=== PATIENT | female | born 1950 | race Caucasian/White ===

== ENCOUNTER 2017-02-04 12:57 | Emergency (ER) | payer MEDICARE ==
[2017-02-04 13:02] VITALS: BMI 29.0
[2017-02-04 13:04] VITALS: O2SAT 97
[2017-02-04 14:44] VITALS: BP 154/84; PULSE 63; RESP 18; TEMP 97.9
== END 2017-02-04 15:19 | disposition home or self-care (01) ==
LOC: C.ER 12:57
DX: S92.351A Displaced fracture of fifth metatarsal bone, right foot, initial encounter for closed fracture (principal); W18.40XA Slipping, tripping and stumbling without falling, unspecified, initial encounter
CPT/HCPCS: 29515; 73630; 97116; 97161; 99285; G8978; G8979; G8980

== ENCOUNTER 2017-11-16 11:21 | Inpatient (IN) | payer MEDICARE ==
[2017-11-16 11:22] VITALS: BMI 29.0
[2017-11-16] MEDS ORDERED: Sodium Chloride 0.9% 1,000 ML IV ONE ×3 (12:24→17:22)
[2017-11-16] MEDS ORDERED: Morphine 4 MG/ML VIAL ONE ×2 (12:33→15:28)
--- NOTE | 2017-11-16 12:45 | RAD ---
PROCEDURE: CHEST RADIOGRAPH, 1 VIEW HISTORY: cp COMPARISON: 04/26/2017 FINDINGS: LUNGS: Clear. PLEURA: No pneumothorax or pleural fluid seen. CARDIOVASCULAR: Normal. OSSEOUS STRUCTURES: No significant abnormalities. VISUALIZED UPPER ABDOMEN: Normal. OTHER FINDINGS: None. IMPRESSION: No active disease.
[2017-11-16 13:11] LABS: ALB/GLOB RATIO 0.7 (1.0-2.1); ALBUMIN 3.5 g/dL (3.5-5.0); ALT/SGPT 25 U/L (9-52); AST/SGOT 24 U/L (14-36); BLOOD UREA NITROGEN 31 mg/dL (7-17); CALCIUM 9.3 mg/dl (8.6-10.4); GFR AFRICAN-AMERICAN > 60; GFR NON-AFRICAN AMERICAN 55; HDL CHOLESTEROL 22 mg/dL (30-70); LIPASE 411 U/L (23-300)
[2017-11-16 13:25] LABS: LDL CHOLESTEROL 133 mg/dL (0-129)
[2017-11-16 13:34] LABS: BASO # 0.1 K/uL (0.0-0.2); BASO % 0.6 % (0.0-2.0); EOS # 0.1 K/uL (0.0-0.7); EOS % 1.3 % (0.0-4.0); HEMOGLOBIN 11.5 g/dL (11.0-16.0); LYMPH % 24.5 % (20.0-40.0); MEAN CELL VOLUME 88.9 fL (81.0-99.0); MEAN CORPUSCULAR HGB CONC 34.9 g/dL (33.0-37.0); MEAN PLATELET VOLUME 8.1 fL (7.2-11.7); MONO # 0.3 K/uL (0.0-0.8); MONO % 3.2 % (0.0-10.0); NEUT # 5.9 K/uL (1.8-7.0); NEUT % 70.4 % (50.0-75.0); NRBC % 0.3 % (0.0-2.0); RBC 3.7 Mil/uL (3.80-5.20); RED CELL DISTRIBUTION WIDTH 15.7 % (11.5-14.5); WHITE BLOOD COUNT 8.3 K/uL (4.8-10.8)
[2017-11-16] MEDS ORDERED: Sodium Chloride 0.9% 1,000 ML ONE (15:27)
--- NOTE | 2017-11-16 15:46 | C.PDOC ---
History Of Present Illness 67-year-old female presents to the emergency department with complaints of epigastric pain that radiates to her back, associated with nausea and episodes of non-bloody/non-bilious vomiting since this morning. Patient has a past medical history of recurrent pancreatitis due to hypertriglyceridemia. Patient denies fever, chest pain, shortness of breath, dysuria/hematuria, or any other associated symptoms. Time Seen by Provider: 11/16/17 12:10 Chief Complaint (Nursing): Abdominal Pain History Per: Patient, Family (daughter at bedside) History/Exam Limitations: no limitations Onset/Duration Of Symptoms: Hrs Current Symptoms Are (Timing): Still Present Severity: Moderate Location Of Pain/Discomfort: Epigastric Past Medical History Reviewed: Historical Data, Nursing Documentation, Vital Signs Vital Signs: Last Vital Signs Temp 97.7 F 11/23/17 07:00 Pulse 67 11/23/17 07:00 Resp 20 11/23/17 07:00 BP 134/84 11/23/17 07:00 Pulse Ox 99 11/23/17 12:04 - Medical History PMH: Anxiety, Arthritis (r foot/ankle), CAD, Cardia Arrhythmia, CHF, Diabetes, Graves' Disease, HTN, Hypercholesterolemia, Hyperlipidemia, Hypothyroidism, Pancreatitis Surgical History: Appendectomy, Coronary Stent (x2) - [facility] Procedures CONTINUOUS INVASIVE MECHANICAL VENTILATION <96 CONSEC HRS (01/10/13) CORONAR ARTERIOGR-2 CATH (12/16/13) ENTERAL INFUSION OF CONCENTRATED NUT. SUBSTANCES (01/10/13) EXCISION OF STOMACH, ENDO, DIAGN (06/23/16) INJECT/INFUSE NEC (12/18/13) INSERT ENDOTRACHEAL TUBE (01/10/13) INSERTION OF INFUSION DEV INTO SUP VENA CAVA, PERC APPROACH (06/23/16) INSERTION OF ONE VASCULAR STENT (12/18/13) INSRT OF DRUG-ELUTING CORON ARTERY STENTS(S) (12/18/13) LEFT HEART CARDIAC CATH (12/16/13) LT HEART ANGIOCARDIOGRAM (12/16/13) MEASURE OF CARDIAC SAMPL & PRESSURE, L HEART, PERC APPROACH (06/23/15) PARENTERAL INFUSION OF CONCENTRATED NUT. SUBSTANCE (01/10/13) PERCUTANEOUS TRANSLUMINAL CORONARY ANGIOPLASTY [PTCA] (12/18/13) PLAIN RADIOGRAPHY OF LEFT HEART USING LOW OSMOLAR CONTRAST (06/23/15) PROCEDURE ON SINGLE VESSEL (12/18/13) Family History: States: No Known Family Hx - Social History Hx Tobacco Use: No Hx Alcohol Use: No Hx Substance Use: No - Immunization History Hx Tetanus Toxoid Vaccination: No Hx Influenza Vaccination: No Hx Pneumococcal Vaccination: No Review Of Systems Constitutional: Negative for: Fever, Chills Cardiovascular: Negative for: Chest Pain, Palpitations Respiratory: Negative for: Shortness of Breath Gastrointestinal: Positive for: Nausea, Vomiting, Abdominal Pain. Negative for : Diarrhea Genitourinary: Negative for: Dysuria, Hematuria Musculoskeletal: Positive for: Back Pain Neurological: Negative for: Weakness, Numbness, Headache, Dizziness Physical Exam - Physical Exam Appears: Well, Non-toxic, Other (in moderate pain) Skin: Normal Color, Warm, Dry, No Rash Head: Normacephalic Eye(s): bilateral: Normal Inspection Oral Mucosa: Moist Neck: Normal ROM Chest: Symmetrical Cardiovascular: Rhythm Regular Respiratory: Normal Breath Sounds, No Accessory Muscle Use, No Rales, No Rhonchi , No Wheezing Gastrointestinal/Abdominal: Bowel Sounds, Soft, Tenderness (epigastric TTP), No Guarding, No Rebound Back: No CVA Tenderness Extremity: Normal ROM, No Pedal Edema Neurological/Psych: Oriented x3 ED Course And Treatment - Laboratory Results Result Diagrams: 11/21/17 06:50 11/22/17 06:30 ECG: Interpreted By Me, Viewed By Me (sinus rhythm 98 bpm, with PVCs in bigeminy pattern, right axis, T wave inversions V5-V6, no acute ST changes) ECG Interpretation: Abnormal (bigeminy pattern unchanged from prior ekg 04/26/17 ) O2 Sat by Pulse Oximetry: 99 (RA) Pulse Ox Interpretation: Normal - CT Scan/US CT ABD/PELVIS Other Rad Studies (CT/US): Read By Radiologist, Radiology Report Reviewed CT/US Interpretation: Accession No. : [id number]. Patient Name / ID : ILDA SAMUELS / [id number]. Exam Date : 11/16/2017 17:04:50 ( Approved ). Study Comment : Sex / Age : F / 67Y. Creator : Nallely Huerta. Dictator : Floyd Cespedes MD. Tallow Maker : Cosmetician : Floyd Cespedes MD. Approver2 : Report Date : 11/16/2017 17:17:02. My Comment : . PROCEDURE: CT Abdomen and Pelvis with contrast. HISTORY: EPIGASTRIC PAIN, R/O PANCREATITIS. COMPARISON: 06/29/2016. TECHNIQUE: Contrast dose: 100 cc Omnipaque 300. Radiation dose: Total exam DLP = 731.13 mGy-cm. This CT exam was performed using one or more of the following dose reduction techniques: Automated exposure control, adjustment of the mA and/or kV according to patient size, and/or use of iterative reconstruction technique. FINDINGS: LOWER THORAX : Unremarkable. LIVER: Unremarkable. No gross lesion or ductal dilatation. GALLBLADDER AND BILE DUCTS: Unremarkable. PANCREAS: Evidence of acute pancreatitis. This is less severe compared to the prior study primarily affecting the pancreatic head and adjacent body with sparing of the distal body and tail of the pancreas. No evidence of necrotizing pancreatitis. No evidence of pseudocyst formation. Adjacent splenic vein and portal veins are patent without evidence of thrombosis. SPLEEN: Unremarkable. ADRENALS: Unremarkable. No mass. KIDNEYS AND URETERS: Unremarkable. No hydronephrosis. No solid mass. VASCULATURE: Unremarkable. No aortic aneurysm. BOWEL: Short segment of acute sigmoid diverticulitis. The descending colon and rectum are spared. No evidence of loculated air, free air or drainable collection. APPENDIX: Normal appendix. PERITONEUM: Unremarkable. No free fluid. No free air. LYMPH NODES: Unremarkable. No enlarged lymph nodes. BLADDER: Unremarkable. REPRODUCTIVE: Unremarkable. BONES: No acute fracture. OTHER FINDINGS: None. IMPRESSION: 1. Acute pancreatitis confined to the head and adjacent proximal body. No evidence of necrotizing pancreatitis. 2. Short segment (uncomplicated) acute sigmoid diverticulitis. Progress Note: Blood work, EKG, CXR, UA, and CT scan abd/pelvis ordered and reviewed. Patient given IV NS bolus, IV Zofran and IV morphine. CT scan shows acute pancreatitis as well as mild acute diverticulitis. IV Ciprofloxacin and Flagyl ordered. - Physician Consult Information Physician Contacted: Sameh S Cipriano Outcome Of Conversation: Discussed patient with PMD, he agrees with admission to his service for acute pancreatitis, mild acute diverticulitis. Disposition - Disposition Disposition: HOSPITALIZED Disposition Time: 17:15 Condition: STABLE - Clinical Impression Clinical Impression: Acute diverticulitis, Hypertriglyceridemia, Acute pancreatitis - Scribe Statement The provider has reviewed the documentation as recorded by the Scribe (Marisela Hernandez) All medical record entries made by the Scribe were at my direction and personally dictated by me. I have reviewed the chart and agree that the record accurately reflects my personal performance of the history, physical exam, medical decision making, and the department course for this patient. I have also personally directed, reviewed, and agree with the discharge instructions and disposition. Decision To Admit - Pt Status Changed To: Hospital Disposition Of: Inpatient - Admit Certification Admit to Inpatient:: After my assessment, the patient will require hospitalization for at least two midnights. This is because of the severity of symptoms shown, intensity of services needed, and/or the medical risk in this patient being treated as an outpatient. - InPatient: Physician Admission Certification:: see notes - . Bed Request Type: Regular Admitting Physician: Yue Cota Patient Diagnosis: Acute pancreatitis, Acute diverticulitis, Hypertriglyceridemia
[2017-11-16] MEDS ORDERED: Iohexol 300 100 ML IJ ONE (16:03)
[2017-11-16 17:10] LABS: SQUAMOUS EPITHIAL < 1 /hpf (0-5); URINE BACTERIA RARE (<OCC); URINE BILIRUBIN NEGATIVE (NEGATIVE); URINE CLARITY Clear (Clear); URINE COLOR Yellow (YELLOW); URINE GLUCOSE (UA) NORMAL (Normal); URINE LEUKOCYTE ESTERASE NEG Leu/uL (Negative); URINE PROTEIN 2+ mg/dL (NEGATIVE); URINE UROBILINOGEN NORMAL mg/dL (0.2-1.0)
[2017-11-16 17:12] LABS: URINE BLOOD TRACE (NEGATIVE)
--- NOTE | 2017-11-16 17:27 | CT ---
PROCEDURE: CT Abdomen and Pelvis with contrast HISTORY: EPIGASTRIC PAIN, R/O PANCREATITIS COMPARISON: 06/29/2016 TECHNIQUE: Contrast dose: 100 cc Omnipaque 300 Radiation dose: Total exam DLP = 731.13 mGy-cm. This CT exam was performed using one or more of the following dose reduction techniques: Automated exposure control, adjustment of the mA and/or kV according to patient size, and/or use of iterative reconstruction technique. FINDINGS: LOWER THORAX: Unremarkable. LIVER: Unremarkable. No gross lesion or ductal dilatation. GALLBLADDER AND BILE DUCTS: Unremarkable. PANCREAS: Evidence of acute pancreatitis. This is less severe compared to the prior study primarily affecting the pancreatic head and adjacent body with sparing of the distal body and tail of the pancreas. No evidence of necrotizing pancreatitis. No evidence of pseudocyst formation. Adjacent splenic vein and portal veins are patent without evidence of thrombosis SPLEEN: Unremarkable. ADRENALS: Unremarkable. No mass. KIDNEYS AND URETERS: Unremarkable. No hydronephrosis. No solid mass. VASCULATURE: Unremarkable. No aortic aneurysm. BOWEL: Short segment of acute sigmoid diverticulitis. The descending colon and rectum are spared. No evidence of loculated air, free air or drainable collection. APPENDIX: Normal appendix. PERITONEUM: Unremarkable. No free fluid. No free air. LYMPH NODES: Unremarkable. No enlarged lymph nodes. BLADDER: Unremarkable. REPRODUCTIVE: Unremarkable. BONES: No acute fracture. OTHER FINDINGS: None. IMPRESSION: 1. Acute pancreatitis confined to the head and adjacent proximal body. No evidence of necrotizing pancreatitis. 2. Short segment (uncomplicated) acute sigmoid diverticulitis.
[2017-11-16] MEDS ORDERED: metroNIDAZOLE IV 500 mg/100 ml 500 MG/100 ML BAG IVPB STA (18:06)
[2017-11-16] MEDS ORDERED: Ciprofloxacin 400mg/200ml D5W 400 MG/200 ML BAG IV STA (18:06)
[2017-11-16] MEDS ORDERED: metroNIDAZOLE IV 500 mg/100 ml 500 MG/100 ML BAG ONE (18:11)
[2017-11-16] MEDS: HYDROmorphone 1 mg/ml ISec IVP PRN (19:50)
[2017-11-16] MEDS: Omega-3-Acid Ethyl Esters 1 GM Cap PO SCH (19:51)
[2017-11-16] MEDS: Sodium Chloride 0.9% 1,000 ML IV SCH (20:04)
[2017-11-16 20:28] VITALS: RESP 20
[2017-11-16] MEDS: (Novolin R) Insulin Human Regular 100 units/ml vial SC SCH (21:28)
[2017-11-17] MEDS: Sodium Chloride 0.9% 1,000 ML IV SCH ×3 (03:26→21:05)
[2017-11-17] MEDS: HYDROmorphone 1 mg/ml ISec IVP PRN ×3 (03:30→18:30)
[2017-11-17 07:33] LABS: ALB/GLOB RATIO 0.9 (1.0-2.1); ALBUMIN 3.4 g/dL (3.5-5.0); CALCIUM 8.3 mg/dl (8.6-10.4)
[2017-11-17] MEDS: (Novolin R) Insulin Human Regular 100 units/ml vial SC SCH ×4 (07:58→22:15)
[2017-11-17 08:13] LABS: BASO % 0.1 % (0.0-2.0); EOS % 0.3 % (0.0-4.0); HEMOGLOBIN 11.2 g/dL (11.0-16.0); LYMPH # 1.4 K/uL (1.0-4.3); MEAN CELL VOLUME 90.5 fL (81.0-99.0); MEAN CORPUSCULAR HEMOGLOBIN 29.8 pg (27.0-31.0); MEAN PLATELET VOLUME 9.5 fL (7.2-11.7); MONO # 0.3 K/uL (0.0-0.8); MONO % 2.9 % (0.0-10.0); NEUT % 83.7 % (50.0-75.0); RBC 3.77 Mil/uL (3.80-5.20); RED CELL DISTRIBUTION WIDTH 16.2 % (11.5-14.5); WHITE BLOOD COUNT 10.8 K/uL (4.8-10.8)
[2017-11-17] MEDS: Omega-3-Acid Ethyl Esters 1 GM Cap PO SCH ×2 (09:33→17:41)
[2017-11-17] MEDS: metroNIDAZOLE IV 500 mg/100 ml 500 MG/100 ML BAG IVPB SCH ×2 (14:56→21:04)
[2017-11-17] MEDS: Ciprofloxacin 400mg/200ml D5W 400 MG/200 ML BAG IVPB SCH (16:52)
--- NOTE | 2017-11-17 22:36 | CARD ---
APPROVED REPORT EKG Measurement Heart [id number] <Conclusion> Sinus rhythm with frequent premature ventricular complexes in a pattern of bigeminy Nonspecific T wave abnormality Prolonged QT Abnormal ECG
[2017-11-18] MEDS: HYDROmorphone 1 mg/ml ISec IVP PRN ×3 (00:11→16:37)
[2017-11-18] MEDS: Sodium Chloride 0.9% 1,000 ML IV SCH ×4 (03:30→21:20)
[2017-11-18] MEDS: Ciprofloxacin 400mg/200ml D5W 400 MG/200 ML BAG IVPB SCH ×2 (04:02→16:27)
--- NOTE | 2017-11-18 05:37 | HP ---
HISTORY OF PRESENT ILLNESS: This is a 67 years old [place] female with history of familial hypertriglyceridemia and recurrent episodes of pancreatitis. The patient presented to emergency room with symptoms of upper abdominal pain associated with nausea and frequent vomiting started on the morning of the day of admission. The patient's symptoms continued that prompted her to come to emergency room for evaluation. The patient had a CAT scan of the abdomen and pelvis that showed sigmoid diverticulitis and acute pancreatitis. The patient was kept n.p.o., started on IV fluid and admitted to the medical floor for further management. The patient had similar episodes before. Other review of systems is negative. ALLERGIES: POSITIVE FOR PENICILLIN. MEDICATIONS: As per MAR. SOCIAL HISTORY No history of smoking, EtOH or substance abuse. FAMILY HISTORY Not contributory. PAST MEDICAL HISTORY: Hypertriglyceridemia, coronary artery disease, hypertension, type 2 diabetes mellitus. PHYSICAL EXAMINATION: GENERAL: The patient is in bed, not in any cardiopulmonary distress. VITAL SIGNS: Blood pressure of 132/72, temperature 99, respiratory rate 20 and pulse 90. HEENT: Pupils equal, reactive to light. Normal-appearing mucosa of the conjunctivae, oropharynx and nasal membrane mucosa. NECK: Supple. No JVD. No carotid bruit. No lymph node. No thyromegaly. CHEST AND LUNGS: Bilateral symmetrical expansion. Good air exchange. No rales, no rhonchi. CARDIOVASCULAR SYSTEM: PMI not localized. S1, S2. No additional sounds. ABDOMEN: Normoactive bowel sounds. No tenderness. There is epigastric tenderness and left lower quadrant tenderness. No rebound tenderness or rigidity. EXTREMITIES: No cyanosis, no clubbing, no edema. FRONT OFFICE ADMINISTRATOR: Alert, awake, oriented x3. No neurological deficit could be appreciated. ASSESSMENT: 1. Acute pancreatitis. 2. Sigmoid diverticulitis. 3. Hypertension. 4. Type 2 diabetes mellitus. PLAN: Continue IV fluid, pain management, antiemetics and continue current IV antibiotics treating diverticulitis. Monitor electrolytes. Yue Cota MD
[2017-11-18] MEDS: metroNIDAZOLE IV 500 mg/100 ml 500 MG/100 ML BAG IVPB SCH ×3 (06:02→21:17)
[2017-11-18 07:21] LABS: BASO % 0.1 % (0.0-2.0); EOS # 0.1 K/uL (0.0-0.7); EOS % 0.8 % (0.0-4.0); HEMOGLOBIN 9.6 g/dL (11.0-16.0); LYMPH # 1.3 K/uL (1.0-4.3); LYMPH % 13.9 % (20.0-40.0); MEAN CELL VOLUME 90.5 fL (81.0-99.0); MEAN CORPUSCULAR HEMOGLOBIN 30.8 pg (27.0-31.0); MONO # 0.4 K/uL (0.0-0.8); MONO % 3.9 % (0.0-10.0); NEUT # 7.8 K/uL (1.8-7.0); NEUT % 81.3 % (50.0-75.0); RBC 3.11 Mil/uL (3.80-5.20); RED CELL DISTRIBUTION WIDTH 16.7 % (11.5-14.5); WHITE BLOOD COUNT 9.7 K/uL (4.8-10.8)
[2017-11-18 07:29] LABS: ALB/GLOB RATIO 0.9 (1.0-2.1); ALT/SGPT 12 U/L (9-52); AST/SGOT 21 U/L (14-36); BLOOD UREA NITROGEN 28 mg/dL (7-17); CALCIUM 8.2 mg/dl (8.6-10.4); GFR AFRICAN-AMERICAN 45; GFR NON-AFRICAN AMERICAN 38; HDL CHOLESTEROL 24 mg/dL (30-70); LIPASE 341 U/L (23-300)
[2017-11-18 07:48] LABS: LDL CHOLESTEROL < 30 mg/dL (0-129)
[2017-11-18] MEDS: (Novolin R) Insulin Human Regular 100 units/ml vial SC SCH ×4 (08:33→22:15)
[2017-11-18] MEDS: Omega-3-Acid Ethyl Esters 1 GM Cap PO SCH (09:19)
--- NOTE | 2017-11-18 21:45 | PN ---
DATE: 11/18/2017 SUBJECTIVE: The patient is seen today 11/18/2017. She is still having abdominal pain and patient still n.p.o. PHYSICAL EXAMINATION: VITAL SIGNS: Blood pressure is 100/60, temperature 98, respiratory rate 20 and pulse 85. HEENT: Pupils equal, reactive to light. Normal-appearing mucosa of the conjunctivae, oropharynx and nasal membrane mucosa. NECK: Supple. No JVD. No carotid bruit. No lymph node. No thyromegaly. CHEST AND LUNGS: Bilateral symmetrical expansion. Good air exchange. No rales, no rhonchi. CARDIOVASCULAR SYSTEM: PMI not localized. S1 and S2. No additional sounds. ABDOMEN: Decreased bowel sounds. Epigastric tenderness. No rebound tenderness. No organomegaly. No masses. EXTREMITIES: No cyanosis, no clubbing, no edema. PROCESS LABORATORY SPECIALIST: Alert, awake, oriented x2. No neurological deficit could be appreciated. ASSESSMENT: 1. Acute pancreatitis. 2. Diverticulitis. 3. Type 2 diabetes mellitus. 4. Hypertension. 5. Coronary artery disease. 6. Elevation of BUN and creatinine. PLAN: Decrease Cipro to 200 mg IV every 12 hours as renal dose. Increase IV fluid to 150 and monitor the patient for any volume overload. Yue Cota MD
[2017-11-19] MEDS: HYDROmorphone 1 mg/ml ISec IVP PRN ×4 (00:18→22:28)
[2017-11-19] MEDS: Sodium Chloride 0.9% 1,000 ML IV SCH ×6 (03:13→22:13)
[2017-11-19] MEDS: metroNIDAZOLE IV 500 mg/100 ml 500 MG/100 ML BAG IVPB SCH ×3 (05:11→21:50)
[2017-11-19] MEDS: Ciprofloxacin 200mg/100ml D5W 100 ML IVPB SCH ×2 (06:09→18:47)
[2017-11-19 07:17] LABS: BASO % 0.2 % (0.0-2.0); EOS # 0.2 K/uL (0.0-0.7); EOS % 1.7 % (0.0-4.0); HEMOGLOBIN 9.3 g/dL (11.0-16.0); LYMPH # 1.7 K/uL (1.0-4.3); LYMPH % 18.8 % (20.0-40.0); MEAN CELL VOLUME 89.8 fL (81.0-99.0); MEAN CORPUSCULAR HEMOGLOBIN 30.6 pg (27.0-31.0); MEAN CORPUSCULAR HGB CONC 34.1 g/dL (33.0-37.0); MEAN PLATELET VOLUME 7.7 fL (7.2-11.7); MONO # 0.2 K/uL (0.0-0.8); MONO % 2.5 % (0.0-10.0); NEUT # 7.1 K/uL (1.8-7.0); NEUT % 76.8 % (50.0-75.0); RBC 3.03 Mil/uL (3.80-5.20); RED CELL DISTRIBUTION WIDTH 16.5 % (11.5-14.5); WHITE BLOOD COUNT 9.3 K/uL (4.8-10.8)
[2017-11-19 07:53] LABS: ALB/GLOB RATIO 0.9 (1.0-2.1); ALBUMIN 2.8 g/dL (3.5-5.0); CALCIUM 8.4 mg/dl (8.6-10.4)
[2017-11-19] MEDS: (Novolin R) Insulin Human Regular 100 units/ml vial SC SCH ×4 (08:09→21:36)
--- NOTE | 2017-11-20 00:12 | PN ---
DATE: 11/19/2017 SUBJECTIVE: The patient is seen today 11/19/2017. She is not in any cardiopulmonary distress. The patient still has upper abdominal pain that needs analgesics. PHYSICAL EXAMINATION: VITAL SIGNS: Blood pressure 124/74, temperature 97.8, respiratory rate 20 and pulse 74. HEENT: Pupils equal, reactive to light. Normal-appearing mucosa of the conjunctivae, oropharynx and nasal membrane mucosa. NECK: Supple. No JVD. No carotid bruit. No lymph node. No thyromegaly. CHEST AND LUNGS: Bilateral symmetrical expansion. Good air exchange. No rales, no rhonchi. CARDIOVASCULAR SYSTEM: PMI not localized. S1, S2. No additional sounds. ABDOMEN: Decreased bowel sounds positive tenderness in the epigastric area. No rebound tenderness or rigidity. No organomegaly. No masses. EXTREMITIES: No cyanosis, no clubbing, no edema. INTERMODAL DISPATCHER: Alert, awake, oriented x2. No neurological deficit could be appreciated. ASSESSMENT: Acute pancreatitis, hypertriglyceridemia, history of coronary artery disease, hypertension, type 2 diabetes mellitus. PLAN: Continue current IV fluids of 150 mL/hour and monitor BUN and creatinine. Follow recommendations of the consultants. Yue Cota MD
[2017-11-20 03:26] LABS: BASO % 0.3 % (0.0-2.0); EOS # 0.2 K/uL (0.0-0.7); EOS % 3.2 % (0.0-4.0); HEMOGLOBIN 10.2 g/dL (11.0-16.0); LYMPH # 1.9 K/uL (1.0-4.3); LYMPH % 25.9 % (20.0-40.0); MEAN CELL VOLUME 90.7 fL (81.0-99.0); MEAN CORPUSCULAR HEMOGLOBIN 30.1 pg (27.0-31.0); MEAN CORPUSCULAR HGB CONC 33.2 g/dL (33.0-37.0); MONO # 0.2 K/uL (0.0-0.8); MONO % 3.3 % (0.0-10.0); NEUT # 4.9 K/uL (1.8-7.0); NEUT % 67.3 % (50.0-75.0); RBC 3.41 Mil/uL (3.80-5.20); RED CELL DISTRIBUTION WIDTH 16.6 % (11.5-14.5); WHITE BLOOD COUNT 7.3 K/uL (4.8-10.8)
[2017-11-20] MEDS: Sodium Chloride 0.9% 1,000 ML IV SCH ×2 (03:30→17:49)
[2017-11-20 03:38] LABS: ALB/GLOB RATIO 0.9 (1.0-2.1); ALBUMIN 3.2 g/dL (3.5-5.0); CALCIUM 8.5 mg/dl (8.6-10.4)
[2017-11-20 03:41] LABS: CK-MB 1.45 ng/mL (0.0-3.38); TROPONIN I 0.025 ng/mL (0.00-0.120)
[2017-11-20] MEDS: HYDROmorphone 1 mg/ml ISec IVP PRN ×4 (04:05→23:03)
[2017-11-20] MEDS: metroNIDAZOLE IV 500 mg/100 ml 500 MG/100 ML BAG IVPB SCH ×3 (05:45→21:55)
[2017-11-20] MEDS: Ciprofloxacin 200mg/100ml D5W 100 ML IVPB SCH ×2 (06:50→19:02)
[2017-11-20] MEDS: (Novolin R) Insulin Human Regular 100 units/ml vial SC SCH ×4 (09:06→21:51)
[2017-11-20 09:45] LABS: ALB/GLOB RATIO 0.9 (1.0-2.1); CALCIUM 8.5 mg/dl (8.6-10.4)
--- NOTE | 2017-11-20 11:04 | CP.PCM.CON ---
<Daxa Isaac - Last Filed: 11/20/17 11:11> History of Present Illness - History of Present Illness History of Present Illness: PGY4 Initial GI Consult 65 year old female who presents with abdominal pain. She has a h/o HTN, HLD, diastolic CHF, hypothyroidism who presents with epigastric pain. The pain radiates to back, associated with nausea and episodes of non-bloody/non-bilious vomiting. The onset of symptoms was a day prior to admission. She notes that her pain has improved through out the hospital course. The pain is similar to past episodes. She has had multiple admissions related to pancreatitis in the setting of hyperlipidemia. She denies fever, chest pain, sob. No rectal bleeding. She has been on therapy for high cholesterol but has had recurrent bouts of pancreatitis anyway. She has DM and takes insulin. No etoh abuse or h/ o gallstones. PMHx: DM, HTN, recurrent pancreatitis, HLD, CAD, diastolic dysfunction PSHx: PCI/Stent placement SHx: non-smoker, no ETOH use, no drugs FHx: nephew with high cholesterol / pancreatitis ROS A comprehensive review of systems was performed and was negative apart from HPI Past Patient History - Infectious Disease Hx of Infectious Diseases: None - Past Medical History & Family History Past Medical History?: Yes - Past Social History Smoking Status: Never Smoked - CARDIAC Hx Congestive Heart Failure: Yes Hx Hypercholesterolemia: Yes Hx Hypertension: Yes - PULMONARY Hx Respiratory Disorders: No - NEUROLOGICAL Hx Neurological Disorder: No - HEENT Hx HEENT Problems: No - RENAL Hx Chronic Kidney Disease: No - ENDOCRINE/METABOLIC Hx Hypothyroidism: Yes - HEMATOLOGICAL/ONCOLOGICAL Hx Blood Disorders: No - INTEGUMENTARY Hx Dermatological Problems: No - MUSCULOSKELETAL/RHEUMATOLOGICAL Hx Arthritis: Yes (r foot/ankle) - GASTROINTESTINAL Hx Pancreatitis: Yes - GENITOURINARY/GYNECOLOGICAL Hx Genitourinary Disorders: No - PSYCHIATRIC Hx Anxiety: Yes Hx Substance Use: No - SURGICAL HISTORY Hx Appendectomy: Yes Hx Coronary Stent: Yes (x2) - ANESTHESIA Hx Anesthesia: Yes Hx Anesthesia Reactions: No Hx Malignant Hyperthermia: No Meds Allergies/Adverse Reactions: Allergies Allergy/AdvReac Type Severity Reaction Status Date / Time Penicillins Allergy SHORTNESS Verified 11/16/17 11:50 OF BREATH - Medications Medications: Current Medications Aspirin (Aspirin Chewable) 81 mg PO 0 [facility] Last Admin: 11/19/17 21:45 Dose: 81 mg Fenofibrate (Tricor) 145 mg PO QPM [facility] Last Admin: 11/19/17 18:08 Dose: 145 mg Hydromorphone HCl (Dilaudid) 1 mg IVP Q4H PRN PRN Reason: Pain, severe (8-10) Last Admin: 11/20/17 08:52 Dose: 1 mg Metronidazole (Flagyl) 500 mg in 100 mls @ 100 mls/hr IVPB Q8 [facility] PRN Reason: Protocol Last Admin: 11/20/17 05:45 Dose: 100 mls/hr Ciprofloxacin (Cipro 200mg/100ml D5w) 100 mls @ 67 mls/hr IVPB Q12H [facility] PRN Reason: Protocol Last Admin: 11/20/17 06:50 Dose: 67 mls/hr Sodium Chloride (Sodium Chloride 0.9%) 1,000 mls @ 70 mls/hr IV .[id number] [facility] Last Admin: 11/20/17 03:30 Dose: 70 mls/hr Insulin Human Regular (Novolin R) 0 unit SC ACHS [facility] PRN Reason: Protocol Last Admin: 11/20/17 09:06 Dose: 4 unit Metoprolol Tartrate (Lopressor) 50 mg PO BID [facility] Last Admin: 11/20/17 09:06 Dose: 50 mg Niacin (Niacin) 1,000 mg PO HS [facility] Last Admin: 11/19/17 21:45 Dose: 1,000 mg [place]-1-Swog Ethyl Esters (Lovaza) 2 gm PO BID [facility] Last Admin: 11/18/17 09:19 Dose: 2 gm Ondansetron HCl (Zofran Inj) 8 mg IVP Q8H PRN PRN Reason: Nausea/Vomiting Last Admin: 11/19/17 22:14 Dose: 8 mg Pantoprazole Sodium (Protonix Inj) 40 mg IVP DAILY [facility] Last Admin: 11/20/17 08:51 Dose: 40 mg Physical Exam - Constitutional Appears: Well, No Acute Distress - Head Exam Head Exam: ATRAUMATIC, NORMOCEPHALIC - Eye Exam Eye Exam: Normal appearance - ENT Exam ENT Exam: Mucous Membranes Moist, Normal Exam - Neck Exam Neck exam: Positive for: Normal Inspection - Respiratory Exam Respiratory Exam: Clear to Auscultation Bilateral, NORMAL BREATHING PATTERN. absent: Rales, Rhonchi, Wheezes, Respiratory Distress - Cardiovascular Exam Cardiovascular Exam: REGULAR RHYTHM, +S1, +S2 - GI/Abdominal Exam GI & Abdominal Exam: Normal Bowel Sounds, Soft. absent: Firm, Guarding, Hernia , Organomegaly, Pulsatile Mass, Rebound, Rigid - Extremities Exam Extremities exam: Negative for: joint swelling, pedal edema - Neurological Exam Neurological exam: Alert, Oriented x3 - Psychiatric Exam Psychiatric exam: Normal Affect, Normal Mood - Skin Skin Exam: Dry, Intact, Normal Color, Warm Results - Vital Signs Recent Vital Signs: Last Vital Signs Temp 97.4 F L 11/20/17 07:45 Pulse 78 11/20/17 07:45 Resp 20 11/20/17 07:45 BP 110/60 11/20/17 07:45 Pulse Ox 98 11/20/17 07:45 - Labs Result Diagrams: 11/20/17 03:12 11/20/17 09:19 Labs: Laboratory Results - last 24 hr 11/19/17 11/19/17 11/20/17 11:14 16:17 03:12 WBC RBC Hgb Hct MCV MCH MCHC RDW Plt Count MPV Neut % (Auto) Lymph % (Auto) [place] % (Auto) Eos % (Auto) Baso % (Auto) Neut # (Auto) Lymph # (Auto) [place] # (Auto) Eos # (Auto) Baso # (Auto) Sodium 143 Potassium 4.8 Chloride 111 H Carbon Dioxide 23 Anion Gap 14 BUN 28 H Creatinine 1.1 Est GFR ( Amer) 60 Est GFR (Non-Af Amer) 50 POC Glucose (mg/dL) 228 H 271 H Random Glucose 269 H Calcium 8.5 L Phosphorus 2.4 L Magnesium 2.0 Total Bilirubin 0.6 AST 17 ALT 19 Alkaline Phosphatase 65 Total Creatine Kinase 62 CK-MB (Mass) 1.45 Troponin I 0.0250 Total Protein 6.8 Albumin 3.2 L Globulin 3.6 Albumin/Globulin Ratio 0.9 L 11/20/17 11/20/17 11/20/17 03:12 06:59 09:19 WBC 7.3 RBC 3.41 L Hgb 10.2 L Hct 30.9 L MCV 90.7 MCH 30.1 MCHC 33.2 RDW 16.6 H Plt Count 256 MPV 8.0 Neut % (Auto) 67.3 Lymph % (Auto) 25.9 [place] % (Auto) 3.3 Eos % (Auto) 3.2 Baso % (Auto) 0.3 Neut # (Auto) 4.9 Lymph # (Auto) 1.9 [place] # (Auto) 0.2 Eos # (Auto) 0.2 Baso # (Auto) 0.0 Sodium 143 Potassium 4.2 Chloride 109 H Carbon Dioxide 23 Anion Gap 14 BUN 28 H Creatinine 1.1 Est GFR ( Amer) 60 Est GFR (Non-Af Amer) 50 POC Glucose (mg/dL) 318 H Random Glucose 291 H Calcium 8.5 L Phosphorus Magnesium Total Bilirubin 0.4 AST 16 ALT 16 Alkaline Phosphatase 57 Total Creatine Kinase CK-MB (Mass) Troponin I Total Protein 6.3 Albumin 3.0 L Globulin 3.3 Albumin/Globulin Ratio 0.9 L Assessment & Plan - Assessment and Plan (Free Text) Assessment: Pt is a 65yo female with PMHx significant for pancreatitis 2/2 hypertriglyceridemia, HTN, DM, HLD, CAD s/p PCI who presented to the ED with epigastric pain. -Acute pancreatitis -CAD with underlying diastolic dysfunction, preserved EF on most recent echocardiogram -DM -HTN Plan: -advance diet to low fat as tolerated -Level of pain improved -continue IV fluids -recommend endocrine consult for lipid and sugar control -on fenofibrate -consider insulin therapy if no improvement in TG levels -can also consider adding lovaza -pain management as per primary team D/W Dr. Lindsey <Randal Lindsey - Last Filed: 11/20/17 19:23> Meds - Medications Medications: Current Medications Aspirin (Aspirin Chewable) 81 mg PO 1000 [facility] Fenofibrate (Tricor) 145 mg PO QPM [facility] Last Admin: 11/20/17 17:29 Dose: 145 mg Heparin Sodium (Porcine) (Heparin) 5,000 units IV Q12 [facility] Hydromorphone HCl (Dilaudid) 1 mg IVP Q4H PRN PRN Reason: Pain, severe (8-10) Last Admin: 11/20/17 13:49 Dose: 1 mg Metronidazole (Flagyl) 500 mg in 100 mls @ 100 mls/hr IVPB Q8 [facility] PRN Reason: Protocol Last Admin: 11/20/17 13:52 Dose: 100 mls/hr Ciprofloxacin (Cipro 200mg/100ml D5w) 100 mls @ 67 mls/hr IVPB Q12H [facility] PRN Reason: Protocol Last Admin: 11/20/17 19:02 Dose: 67 mls/hr Sodium Chloride (Sodium Chloride 0.9%) 1,000 mls @ 70 mls/hr IV .[id number] [facility] Last Admin: 11/20/17 17:49 Dose: Not Given Insulin Human Regular (Novolin R) 0 unit SC ACHS [facility] PRN Reason: Protocol Last Admin: 11/20/17 17:30 Dose: 3 unit Metoprolol Tartrate (Lopressor) 50 mg PO BID [facility] Last Admin: 11/20/17 17:29 Dose: 50 mg Niacin (Niacin) 1,000 mg PO HS [facility] Last Admin: 11/19/17 21:45 Dose: 1,000 mg Tnklw-6-Lntm Ethyl Esters (Lovaza) 2 gm PO BID [facility] Last Admin: 11/18/17 09:19 Dose: 2 gm Ondansetron HCl (Zofran Inj) 8 mg IVP Q8H PRN PRN Reason: Nausea/Vomiting Last Admin: 11/19/17 22:14 Dose: 8 mg Pantoprazole Sodium (Protonix Inj) 40 mg IVP DAILY [facility] Last Admin: 11/20/17 11:12 Dose: Not Given Results - Vital Signs Recent Vital Signs: Last Vital Signs Temp 97.8 F 11/20/17 15:00 Pulse 70 11/20/17 15:00 Resp 20 11/20/17 15:00 BP 110/53 L 11/20/17 15:00 Pulse Ox 98 11/20/17 15:00 - Labs Result Diagrams: 11/20/17 03:12 11/20/17 09:19 Labs: Laboratory Results - last 24 hr 11/19/17 11/19/17 11/19/17 06:58 16:17 21:29 WBC RBC Hgb Hct MCV MCH MCHC RDW Plt Count MPV Neut % (Auto) Lymph % (Auto) [place] % (Auto) Eos % (Auto) Baso % (Auto) Neut # (Auto) Lymph # (Auto) [place] # (Auto) Eos # (Auto) Baso # (Auto) Sodium Potassium Chloride Carbon Dioxide Anion Gap BUN Creatinine Est GFR ( Amer) Est GFR (Non-Af Amer) POC Glucose (mg/dL) 246 H 271 H 292 H Random Glucose Calcium Phosphorus Magnesium Total Bilirubin AST ALT Alkaline Phosphatase Total Creatine Kinase CK-MB (Mass) Troponin I Total Protein Albumin Globulin Albumin/Globulin Ratio 11/20/17 11/20/17 11/20/17 03:12 03:12 06:59 WBC 7.3 RBC 3.41 L Hgb 10.2 L Hct 30.9 L MCV 90.7 MCH 30.1 MCHC 33.2 RDW 16.6 H Plt Count 256 MPV 8.0 Neut % (Auto) 67.3 Lymph % (Auto) 25.9 [place] % (Auto) 3.3 Eos % (Auto) 3.2 Baso % (Auto) 0.3 Neut # (Auto) 4.9 Lymph # (Auto) 1.9 [place] # (Auto) 0.2 Eos # (Auto) 0.2 Baso # (Auto) 0.0 Sodium 143 Potassium 4.8 Chloride 111 H Carbon Dioxide 23 Anion Gap 14 BUN 28 H Creatinine 1.1 Est GFR ( Amer) 60 Est GFR (Non-Af Amer) 50 POC Glucose (mg/dL) 318 H Random Glucose 269 H Calcium 8.5 L Phosphorus 2.4 L Magnesium 2.0 Total Bilirubin 0.6 AST 17 ALT 19 Alkaline Phosphatase 65 Total Creatine Kinase 62 CK-MB (Mass) 1.45 Troponin I 0.0250 Total Protein 6.8 Albumin 3.2 L Globulin 3.6 Albumin/Globulin Ratio 0.9 L 11/20/17 11/20/17 09:19 11:31 WBC RBC Hgb Hct MCV MCH MCHC RDW Plt Count MPV Neut % (Auto) Lymph % (Auto) [place] % (Auto) Eos % (Auto) Baso % (Auto) Neut # (Auto) Lymph # (Auto) [place] # (Auto) Eos # (Auto) Baso # (Auto) Sodium 143 Potassium 4.2 Chloride 109 H Carbon Dioxide 23 Anion Gap 14 BUN 28 H Creatinine 1.1 Est GFR ( Amer) 60 Est GFR (Non-Af Amer) 50 POC Glucose (mg/dL) 370 H Random Glucose 291 H Calcium 8.5 L Phosphorus Magnesium Total Bilirubin 0.4 AST 16 ALT 16 Alkaline Phosphatase 57 Total Creatine Kinase CK-MB (Mass) Troponin I Total Protein 6.3 Albumin 3.0 L Globulin 3.3 Albumin/Globulin Ratio 0.9 L Attending/Attestation - Attestation I have personally seen and examined this patient.: Yes I have fully participated in the care of the patient.: Yes I have reviewed all pertinent clinical information: Yes Notes (Text): 11/20/17 19:22 67 year old female admitted with recurrent acute pancreatitis 2/2 hypertriglyceridemia. Recommend IV fluids, pain meds. Recommend endocrine eval. Continue fibrate. Also recommend abx for diverticulitis. Outpatient colonoscopy in 2 months.
--- NOTE | 2017-11-20 13:03 | RAD ---
HISTORY: shortness of breath COMPARISON: 11/16/2017 FINDINGS: LUNGS: No discrete infiltrates pulmonary nodules or masses PLEURA: No significant pleural effusion identified, no pneumothorax apparent. CARDIOVASCULAR: Cardiomegaly, pulmonary vascular congestion. OSSEOUS STRUCTURES: No significant abnormalities. VISUALIZED UPPER ABDOMEN: Normal. OTHER FINDINGS: None. IMPRESSION: Cardiomegaly, mild pulmonary vascular congestion a new finding compared to 11/16/2017.
--- NOTE | 2017-11-20 23:53 | PN ---
DATE: 11/20/2017 SUBJECTIVE: The patient is seen today 11/20/2017. Abdominal pain is less and the patient so far is tolerating liquid diet. PHYSICAL EXAMINATION: VITAL SIGNS: Blood pressure 110/53, temperature 97.8, respiratory rate 20 and pulse 17. HEENT: Pupils equal, reactive to light. Normal-appearing mucosa of the conjunctivae, oropharynx and nasal membrane mucosa. NECK: Supple. No JVD. No carotid bruit. No lymph node. No thyromegaly. CHEST AND LUNGS: Bilateral symmetrical expansion. Good air exchange. No rales, no rhonchi. CARDIOVASCULAR SYSTEM: PMI not localized. S1, S2. No additional sounds. ABDOMEN: Normoactive bowel sounds. No tenderness. No organomegaly. No masses. EXTREMITIES: No cyanosis, no clubbing, no edema. 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 No neurological deficit could be appreciated. ASSESSMENT: 1. Acute pancreatitis. 2. Hypertriglyceridemia. 3. Type 2 diabetes mellitus. 4. Hypertension. 5. Coronary artery disease. PLAN: Continue current IV fluids and pain management and IV antibiotics treating diverticulitis. Will advance diet as tolerated. Yue Cota MD
[2017-11-21] MEDS: Sodium Chloride 0.9% 1,000 ML IV SCH ×2 (04:05→08:00)
[2017-11-21] MEDS: metroNIDAZOLE IV 500 mg/100 ml 500 MG/100 ML BAG IVPB SCH ×3 (05:50→22:36)
[2017-11-21] MEDS: Ciprofloxacin 200mg/100ml D5W 100 ML IVPB SCH ×2 (06:58→19:22)
[2017-11-21 06:59] LABS: HEMOGLOBIN 9.2 g/dL (11.0-16.0); MEAN CELL VOLUME 89.7 fL (81.0-99.0); MEAN CORPUSCULAR HEMOGLOBIN 30.4 pg (27.0-31.0); MEAN CORPUSCULAR HGB CONC 33.9 g/dL (33.0-37.0); MEAN PLATELET VOLUME 8.2 fL (7.2-11.7); RBC 3.03 Mil/uL (3.80-5.20); RED CELL DISTRIBUTION WIDTH 16.4 % (11.5-14.5); WHITE BLOOD COUNT 5.8 K/uL (4.8-10.8)
[2017-11-21 07:12] LABS: CALCIUM 8.5 mg/dl (8.6-10.4)
[2017-11-21] MEDS: (Novolin R) Insulin Human Regular 100 units/ml vial SC SCH ×4 (08:30→21:49)
--- NOTE | 2017-11-21 08:45 | CP.PCM.PN ---
<Daxa Isaac - Last Filed: 11/21/17 14:07> Subjective - Date & Time of Evaluation Date of Evaluation: 11/21/17 Time of Evaluation: 07:20 - Subjective Subjective: PGY4 GI Follow-up Pt seen and examined bedside still complaining of abd pain minimal Po intake with clears Denies BM ROS: 12 point ROS conducted, neg other than above Objective - Vital Signs/Intake and Output Vital Signs (last 24 hours): Temp Pulse Resp BP Pulse Ox 98.3 F 68 20 153/72 H 98 11/21/17 07:00 11/21/17 07:00 11/21/17 07:00 11/21/17 07:00 11/21/17 07:00 Intake and Output: 11/21/17 11/21/17 06:59 18:59 Intake Total 1380 Balance 1380 - Medications Medications: Current Medications Aspirin (Aspirin Chewable) 81 mg PO 0930 [facility] Fenofibrate (Tricor) 145 mg PO QPM [facility] Last Admin: 11/20/17 17:29 Dose: 145 mg Heparin Sodium (Porcine) (Heparin) 5,000 units IV Q12 [facility] Last Admin: 11/20/17 21:52 Dose: 5,000 units Hydromorphone HCl (Dilaudid) 1 mg IVP Q4H PRN PRN Reason: Pain, severe (8-10) Last Admin: 11/20/17 23:03 Dose: 1 mg Metronidazole (Flagyl) 500 mg in 100 mls @ 100 mls/hr IVPB Q8 [facility] PRN Reason: Protocol Last Admin: 11/21/17 05:50 Dose: 100 mls/hr Ciprofloxacin (Cipro 200mg/100ml D5w) 100 mls @ 67 mls/hr IVPB Q12H [facility] PRN Reason: Protocol Last Admin: 11/21/17 06:58 Dose: 67 mls/hr Sodium Chloride (Sodium Chloride 0.9%) 1,000 mls @ 70 mls/hr IV .[id number] [facility] Last Admin: 11/21/17 04:05 Dose: 70 mls/hr Insulin Human Regular (Novolin R) 0 unit SC ACHS [facility] PRN Reason: Protocol Last Admin: 11/20/17 21:51 Dose: Not Given Metoprolol Tartrate (Lopressor) 50 mg PO BID [facility] Last Admin: 11/20/17 17:29 Dose: 50 mg Niacin (Niacin) 1,000 mg PO HS [facility] Last Admin: 11/20/17 21:52 Dose: 1,000 mg [place]amo-4-Gagx Ethyl Esters (Lovaza) 2 gm PO BID [facility] Last Admin: 11/18/17 09:19 Dose: 2 gm Ondansetron HCl (Zofran Inj) 8 mg IVP Q8H PRN PRN Reason: Nausea/Vomiting Last Admin: 11/21/17 07:13 Dose: 8 mg Pantoprazole Sodium (Protonix Inj) 40 mg IVP DAILY [facility] Last Admin: 11/20/17 11:12 Dose: Not Given - Labs Labs: 11/21/17 06:50 11/21/17 06:50 - Constitutional Appears: Well, In Acute Distress - Head Exam Head Exam: ATRAUMATIC, NORMOCEPHALIC - Eye Exam Eye Exam: Normal appearance - ENT Exam ENT Exam: Mucous Membranes Moist - Respiratory Exam Respiratory Exam: Clear to Ausculation Bilateral, NORMAL BREATHING PATTERN. absent: Rales, Rhonchi, Wheezes, Respiratory Distress - Cardiovascular Exam Cardiovascular Exam: REGULAR RHYTHM, +S1, +S2 - GI/Abdominal Exam GI & Abdominal Exam: Soft, Tenderness (epigastric), Normal Bowel Sounds. absent : Distended, Firm, Guarding, Rigid - Extremities Exam Extremities Exam: Pedal Edema. absent: Joint Swelling - Neurological Exam Neurological Exam: Alert, Awake, Oriented x3 - Psychiatric Exam Psychiatric exam: Normal Affect, Normal Mood - Skin Skin Exam: Dry, Intact, Normal Color, Warm Assessment and Plan - Assessment and Plan (Free Text) Assessment: Pt is a 65yo female with PMHx significant for pancreatitis 2/2 hypertriglyceridemia, HTN, DM, HLD, CAD s/p PCI who presented to the ED with epigastric pain. -Acute pancreatitis -sigmoid diverticulitis -CAD with underlying diastolic dysfunction, preserved EF on most recent echocardiogram -DM -HTN Plan: -keep clears for now -Level of pain remains the same -continue IV fluids, no pleural effusions on cxr -recommend endocrine consult for lipid and sugar control -recommend cardiology for CHF eval -on fenofibrate -consider insulin therapy if no improvement in TG levels -can also consider adding lovaza -pain management as per primary team -will get repeat CT abd to eval for nectrotizing D/W Dr. Black <Osmani Black - Last Filed: 11/21/17 14:22> Objective - Vital Signs/Intake and Output Vital Signs (last 24 hours): Temp Pulse Resp BP Pulse Ox 98.3 F 68 20 153/72 H 98 11/21/17 07:00 11/21/17 07:00 11/21/17 07:00 11/21/17 07:00 11/21/17 07:00 Intake and Output: 11/21/17 11/21/17 06:59 18:59 Intake Total 1380 Balance 1380 - Medications Medications: Current Medications Aspirin (Aspirin Chewable) 81 mg PO 0930 [facility] Last Admin: 11/21/17 10:30 Dose: 81 mg Fenofibrate (Tricor) 145 mg PO QPM [facility] Last Admin: 11/20/17 17:29 Dose: 145 mg Heparin Sodium (Porcine) (Heparin) 5,000 units IV Q12 [facility] Last Admin: 11/21/17 11:00 Dose: 5,000 units Hydromorphone HCl (Dilaudid) 0.5 mg IVP Q4H PRN PRN Reason: Pain, severe (8-10) Metronidazole (Flagyl) 500 mg in 100 mls @ 100 mls/hr IVPB Q8 [facility] PRN Reason: Protocol Last Admin: 11/21/17 05:50 Dose: 100 mls/hr Ciprofloxacin (Cipro 200mg/100ml D5w) 100 mls @ 67 mls/hr IVPB Q12H [facility] PRN Reason: Protocol Last Admin: 11/21/17 06:58 Dose: 67 mls/hr Sodium Chloride (Sodium Chloride 0.9%) 1,000 mls @ 70 mls/hr IV .[id number] [facility] Last Admin: 11/21/17 08:00 Dose: Not Given Insulin Human Regular (Novolin R) 0 unit SC ACHS [facility] PRN Reason: Protocol Metoprolol Tartrate (Lopressor) 50 mg PO BID [facility] Last Admin: 11/21/17 11:00 Dose: 50 mg Niacin (Niacin) 1,000 mg PO HS [facility] Last Admin: 11/20/17 21:52 Dose: 1,000 mg Pepox-6-Rhim Ethyl Esters (Lovaza) 2 gm PO BID [facility] Last Admin: 11/18/17 09:19 Dose: 2 gm Ondansetron HCl (Zofran Inj) 8 mg IVP Q8H PRN PRN Reason: Nausea/Vomiting Last Admin: 11/21/17 07:13 Dose: 8 mg Pantoprazole Sodium (Protonix Inj) 40 mg IVP DAILY [facility] Last Admin: 11/21/17 11:00 Dose: 40 mg - Labs Labs: 11/21/17 06:50 11/21/17 06:50 Attending/Attestation - Attestation I have personally seen and examined this patient.: Yes I have fully participated in the care of the patient.: Yes I have reviewed all pertinent clinical information, including history, physical exam and plan: Yes Notes (Text): 11/21/17 14:21 67 year old female admitted with recurrent acute pancreatitis 2/2 hypertriglyceridemia. Recommend IV fluids, pain meds. Continue fibrate. Still compalining of pain. Will repeat CTAP today
--- NOTE | 2017-11-21 09:05 | RAD ---
HISTORY: SOB COMPARISON: Chest radiograph dated 11/20/2017. FINDINGS: LUNGS: Prominence of the pulmonary vasculature may be secondary to AP technique and/or pulmonary vascular congestion. No focal consolidation. PLEURA: No significant pleural effusion identified, no pneumothorax apparent. CARDIOVASCULAR: Atherosclerotic aortic calcifications. Cardiomediastinal silhouette stably enlarged. OSSEOUS STRUCTURES: Unchanged. VISUALIZED UPPER ABDOMEN: Normal. OTHER FINDINGS: None. IMPRESSION: Prominence of the pulmonary vasculature may be secondary to AP technique and/or pulmonary vascular congestion. No focal consolidation or pleural effusion.
[2017-11-21] MEDS: HYDROmorphone 1 mg/ml ISec IVP PRN (09:40)
[2017-11-21] MEDS ORDERED: HYDROmorphone 0.5 mg/0.5 ml ISec IVP PRN (11:08)
--- NOTE | 2017-11-21 12:09 | CARD ---
APPROVED REPORT EKG Measurement Heart [id number] <Conclusion> Sinus rhythm with frequent premature ventricular complexes in a pattern of bigeminy Rightward axis Borderline ECG
[2017-11-21] MEDS ORDERED: Iohexol 240 (50 ml) PO ONE (15:30)
--- NOTE | 2017-11-22 00:35 | PN ---
DATE: 11/21/2017 SUBJECTIVE: The patient is seen today, 11/21/2017. The patient was feeling slight tightness in the chest. OBJECTIVE: VITAL SIGNS: Blood pressure , temperature 98.8, respiratory rate 20, and pulse 68. HEENT: Pupils equal and reactive to light. Normal-appearing mucosa of the conjunctivae, oropharynx, and nasal membrane mucosa. NECK: Supple. No JVD. No carotid bruit. No lymph node. No thyromegaly. CHEST AND LUNGS: Bilateral symmetrical expansion. Good air exchange. No rales, no rhonchi. CARDIOVASCULAR SYSTEM: PMI not localized. S1, S2. No additional sounds. ABDOMEN: Normoactive bowel sounds. No tenderness. No organomegaly. No masses. EXTREMITIES: No cyanosis, no clubbing, no edema. [employer]: Alert, awake, oriented x2. No neurological deficit could be appreciated. ASSESSMENT: 1. Acute pancreatitis. 2. Diverticulitis. 3. Type 2 diabetes mellitus. 4. Hypertension. PLAN: Continue current antibiotics. We will discontinue IV fluids and give the patient Lasix 20 mg IV push as chest x-ray showed some pulmonary congestion and follow GI recommendations and advance diet. Yue Cota MD
[2017-11-22] MEDS: metroNIDAZOLE IV 500 mg/100 ml 500 MG/100 ML BAG IVPB SCH ×2 (06:23→14:15)
[2017-11-22] MEDS: Ciprofloxacin 200mg/100ml D5W 100 ML IVPB SCH ×2 (06:23→18:14)
[2017-11-22 07:07] LABS: ALBUMIN 3.5 g/dL (3.5-5.0); ALT/SGPT 8 U/L (9-52); AST/SGOT 19 U/L (14-36); BLOOD UREA NITROGEN 21 mg/dL (7-17); CALCIUM 8.7 mg/dl (8.6-10.4); GFR AFRICAN-AMERICAN 60; GFR NON-AFRICAN AMERICAN 50; HDL CHOLESTEROL 22 mg/dL (30-70)
[2017-11-22 07:30] LABS: LDL CHOLESTEROL < 30 mg/dL (0-129)
--- NOTE | 2017-11-22 08:27 | CP.PCM.PN ---
<Luci Way - Last Filed: 11/22/17 08:54> Subjective - Date & Time of Evaluation Date of Evaluation: 11/22/17 Time of Evaluation: 08:24 - Subjective Subjective: Gastroenterology Fellow/PGY5 Progress Note Patient notes resolved chest pain and shortness of breath. Admits to improving epigastric pain, pain scale 6/10. Continues to have nausea. Tolerating clear liquid diet. Admits to formed stool yesterday. A 12-point review of systems negative except for as above. Objective - Vital Signs/Intake and Output Vital Signs (last 24 hours): Temp Pulse Resp BP Pulse Ox 97.8 F 72 20 118/64 94 L 11/22/17 00:00 11/22/17 00:00 11/22/17 00:00 11/22/17 00:00 11/22/17 00:00 - Medications Medications: Current Medications Aspirin (Aspirin Chewable) 81 mg PO 0930 [facility] Last Admin: 11/21/17 10:30 Dose: 81 mg Fenofibrate (Tricor) 145 mg PO QPM [facility] Last Admin: 11/21/17 17:57 Dose: 145 mg Heparin Sodium (Porcine) (Heparin) 5,000 units IV Q12 [facility] Last Admin: 11/21/17 21:12 Dose: 5,000 units Hydromorphone HCl (Dilaudid) 0.5 mg IVP Q4H PRN PRN Reason: Pain, severe (8-10) Last Admin: 11/22/17 04:21 Dose: 0.5 mg Metronidazole (Flagyl) 500 mg in 100 mls @ 100 mls/hr IVPB Q8 [facility] PRN Reason: Protocol Last Admin: 11/22/17 06:23 Dose: 100 mls/hr Ciprofloxacin (Cipro 200mg/100ml D5w) 100 mls @ 67 mls/hr IVPB Q12H [facility] PRN Reason: Protocol Last Admin: 11/22/17 06:23 Dose: 67 mls/hr Insulin Human Regular (Novolin R) 0 unit SC ACHS [facility] PRN Reason: Protocol Last Admin: 11/21/17 21:49 Dose: 2 unit Metoprolol Tartrate (Lopressor) 50 mg PO BID [facility] Last Admin: 11/21/17 17:57 Dose: 50 mg Niacin (Niacin) 1,000 mg PO HS [facility] Last Admin: 11/21/17 21:09 Dose: 1,000 mg Mbtup-1-Ljca Ethyl Esters (Lovaza) 2 gm PO BID [facility] Last Admin: 11/18/17 09:19 Dose: 2 gm Ondansetron HCl (Zofran Inj) 8 mg IVP Q8H PRN PRN Reason: Nausea/Vomiting Last Admin: 11/21/17 07:13 Dose: 8 mg Pantoprazole Sodium (Protonix Inj) 40 mg IVP DAILY [facility] Last Admin: 11/21/17 11:00 Dose: 40 mg - Labs Labs: 11/21/17 06:50 11/22/17 06:30 - Constitutional Appears: Non-toxic, No Acute Distress - Head Exam Head Exam: ATRAUMATIC, NORMOCEPHALIC - Eye Exam Eye Exam: EOMI, PERRL. absent: Scleral icterus Pupil Exam: PERRL. absent: Miosis, Mydriatic - ENT Exam ENT Exam: Mucous Membranes Moist, Normal Oropharynx - Neck Exam Neck Exam: Full ROM, Normal Inspection - Respiratory Exam Respiratory Exam: Clear to Ausculation Bilateral. absent: Rales, Rhonchi, Wheezes - Cardiovascular Exam Cardiovascular Exam: RRR, +S1, +S2. absent: Gallop, Rubs - GI/Abdominal Exam GI & Abdominal Exam: Soft, Tenderness, Normal Bowel Sounds. absent: Distended, Firm, Guarding, Rigid, Organomegaly, Rebound Additional comments: epigastric tenderness to palpation - Extremities Exam Extremities Exam: Normal Inspection. absent: Pedal Edema - Neurological Exam Neurological Exam: Alert, Awake - Psychiatric Exam Psychiatric exam: Normal Affect, Normal Mood - Skin Skin Exam: Dry, Intact, Normal Color, Warm Assessment and Plan - Assessment and Plan (Free Text) Assessment: 67 year old female with PMH of pancreatitis 2/2 hypertriglyceridemia, HTN, DM, HLD, CAD s/p PCI, and diastolic dysfunction presenting with epigastric pain. Active treatment of acute mild pancreatitis with CT A/P showing pancreatic head and body inflammation. Prior EGD 07/2016 showed H. pylori negative gastritis. Plan: -TGs 977, pending level today -on fenofibrate 145mg daily -repeat CT A/P-preliminary read - no signs of necrotizing pancreatitis or diverticulitis -follow up final read of CT -recommend stopping antibiotics -11/21 CXR-minimal vascular congestion -tolerated liquid diet, advance to low fat diet -counselled on compliance to medications and diet -counselled on ambulation and physical therapy -recommend endocrine consult for continuity management of uncontrolled hypertriglyceridemia in setting of recurrent pancreatitis <Adilson Joseph - Last Filed: 11/22/17 09:16> Objective - Vital Signs/Intake and Output Vital Signs (last 24 hours): Temp Pulse Resp BP Pulse Ox 98.5 F 73 20 139/79 96 11/22/17 08:00 11/22/17 08:00 11/22/17 08:00 11/22/17 08:00 11/22/17 08:00 - Medications Medications: Current Medications Aspirin (Aspirin Chewable) 81 mg PO 0930 [facility] Last Admin: 11/21/17 10:30 Dose: 81 mg Fenofibrate (Tricor) 145 mg PO QPM [facility] Last Admin: 11/21/17 17:57 Dose: 145 mg Heparin Sodium (Porcine) (Heparin) 5,000 units IV Q12 [facility] Last Admin: 11/21/17 21:12 Dose: 5,000 units Hydromorphone HCl (Dilaudid) 0.5 mg IVP Q4H PRN PRN Reason: Pain, severe (8-10) Last Admin: 11/22/17 04:21 Dose: 0.5 mg Metronidazole (Flagyl) 500 mg in 100 mls @ 100 mls/hr IVPB Q8 [facility] PRN Reason: Protocol Last Admin: 11/22/17 06:23 Dose: 100 mls/hr Ciprofloxacin (Cipro 200mg/100ml D5w) 100 mls @ 67 mls/hr IVPB Q12H [facility] PRN Reason: Protocol Last Admin: 11/22/17 06:23 Dose: 67 mls/hr Insulin Human Regular (Novolin R) 0 unit SC ACHS [facility] PRN Reason: Protocol Last Admin: 11/22/17 08:30 Dose: 6 unit Metoprolol Tartrate (Lopressor) 50 mg PO BID [facility] Last Admin: 11/21/17 17:57 Dose: 50 mg Niacin (Niacin) 1,000 mg PO HS [facility] Last Admin: 11/21/17 21:09 Dose: 1,000 mg Lxrwl-3-Ovoc Ethyl Esters (Lovaza) 2 gm PO BID [facility] Last Admin: 05/18/18 09:19 Dose: 2 gm Ondansetron HCl (Zofran Inj) 8 mg IVP Q8H PRN PRN Reason: Nausea/Vomiting Last Admin: 11/21/17 07:13 Dose: 8 mg Pantoprazole Sodium (Protonix Inj) 40 mg IVP DAILY [facility] Last Admin: 11/21/17 11:00 Dose: 40 mg - Labs Labs: 11/21/17 06:50 11/22/17 06:30 Attending/Attestation - Attestation I have personally seen and examined this patient.: Yes I have fully participated in the care of the patient.: Yes I have reviewed all pertinent clinical information, including history, physical exam and plan: Yes Notes (Text): 11/22/17 09:07 I have seen and examined patient with GI fellow. No acute events overnight, she is seen resting in bed comfortably eating breakfast. She endorses ongoing abdominal pain but improved compared to prior. She denies vomiting, fever/ chills, or diarrhea. Tolerating PO liquids without difficulty. Review of vitals from today are normal. Abdominal pain, acute pancreatitis secondary to hypertriglyceridemia DM - uncontrolled HTN CAD - Advance diet to low fat as tolerated - Repeat triglycerides remain elevated > 900 today despite oral medical therapy , suggest endocrine consultation for further management - Maintain strict blood glucose control - Awaiting final read of CT imaging, no clear indication for ongoing antibiotic therapy, can likely discontinue - Will continue to monitor patient clinical course
[2017-11-22] MEDS: (Novolin R) Insulin Human Regular 100 units/ml vial SC SCH ×4 (08:30→21:50)
--- NOTE | 2017-11-22 09:02 | CT ---
PROCEDURE: CT Abdomen and Pelvis without intravenous contrast HISTORY: eval pancreas, r/o nectrotizing COMPARISON: 11/16/2017 TECHNIQUE: Without contrast.. Contrast dose: 0 Radiation dose: Total exam DLP = 666.36 mGy-cm. This CT exam was performed using one or more of the following dose reduction techniques: Automated exposure control, adjustment of the mA and/or kV according to patient size, and/or use of iterative reconstruction technique. FINDINGS: LOWER THORAX: Small bilateral pleural effusion. No consolidation. LIVER: Hepatomegaly. The liver measures 22.7 cm craniocaudal. Smooth contour. No mass. No biliary dilatation. GALLBLADDER AND BILE DUCTS: Unremarkable. PANCREAS: Minimal peripancreatic stranding consistent with residual sequelae of pancreatitis. No peripancreatic fluid collection or mass identified. No pancreatic mass or pancreatic ductal dilatation. SPLEEN: Unremarkable. ADRENALS: Unremarkable. No mass. KIDNEYS AND URETERS: Unremarkable. No hydronephrosis. No solid mass. VASCULATURE: Unremarkable. No aortic aneurysm. BOWEL: Unremarkable. No obstruction. No gross mural thickening. APPENDIX: Not identified. PERITONEUM: Nonspecific trace fluid in cul-de-sac. LYMPH NODES: Unremarkable. No enlarged lymph nodes. BLADDER: Suboptimally distended. Grossly normal peer REPRODUCTIVE: Normal uterus. BONES: No acute fracture. OTHER FINDINGS: None. IMPRESSION: Minimal residual peripancreatic stranding.. No evidence of pancreatic pseudocyst. Very small bilateral pleural effusion and trace fluid in cul-de-sac. Hepatomegaly. Preliminary interpretation of this examination was reported by [facility] at 8:23 p.m. on 11/21/2017. There is concurrence of this report with the preliminary interpretation.
[2017-11-22 15:40] LABS: CK-MB 1.11 ng/mL (0.0-3.38); TROPONIN I 0.015 ng/mL (0.00-0.120)
--- NOTE | 2017-11-22 17:20 | PN ---
DATE: 11/22/2017 SUBJECTIVE: The patient is seen today, 11/22/2017. She is still complaining of intermittent pressure-like chest feeling, retrosternal. PHYSICAL EXAMINATION: VITAL SIGNS: Blood pressure is 139/79, temperature 98.5, respiratory rate 18, and pulse 73. HEENT: Pupils are equal, and reactive to light. Normal-appearing mucosa of the conjunctivae, oropharynx, and nasal membrane mucosa. NECK: Supple. No JVD. No carotid bruits. No lymph node. No thyromegaly. CHEST AND LUNGS: Bilateral symmetrical expansion. Good air exchange. No rales, no rhonchi. CARDIOVASCULAR SYSTEM: PMI not localized. S1, S2. No additional sounds. ABDOMEN: Normoactive bowel sounds. No tenderness. No organomegaly. No masses. EXTREMITIES: No cyanosis, no clubbing, no edema. 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 No neurological deficits could be appreciated. ASSESSMENT: 1. Acute pancreatitis. 2. Hypertriglyceridemia. 3. Type 2 diabetes mellitus. 4. Hypertension. 5. Chest pain. PLAN: We will do Cardiology consult and Endocrinology consult. Continue current medications. Discussed the patient's condition with . Yue Cota MD
[2017-11-22] MEDS ORDERED: (Lantus) Insulin Glargine, Recombinant SC SCH (18:00)
--- NOTE | 2017-11-23 00:27 | CON ---
DATE: 11/22/2017 CARDIOLOGY CONSULTATION REASON FOR CONSULTATION: Chest pain. HISTORY OF PRESENT ILLNESS: The patient is a 67 years old Citizen [place] female, who has a history of hypertension, coronary artery disease, hypertriglyceridemia, recurrent pancreatitis, history of coronary stenting to the LAD, more than once in the past, presented with abdominal pain who was diagnosed with acute pancreatitis. Initial lipase level was 411, then 1250. Most recent lipase level is within normal limit at 123. The patient's abdominal pain, nausea and vomiting has improved. She started to experience episodes of retrosternal chest tightness, non radiating. The patient denies any associated shortness of breath. SOCIAL HISTORY: Nonsmoker, nondrinker. MEDICATIONS: Aspirin 81 mg once a day, IV Cipro 200 mg intravenously every 12 hours, Dilaudid 0.5 mg intravenously every 6 hours, heparin 5000 units subcutaneously twice a day, Lopressor 50 mg twice a day, niacin 1 gm q.h.s., Protonix 40 mg subcutaneously once a day, Tricor 145 mg once a day, Zofran 8 mg intravenously every 8 hours p.r.n. for nausea and vomiting. REVIEW OF SYSTEMS: No hematemesis or melena. No dizziness or syncope. No fever or chills. PHYSICAL EXAMINATION: GENERAL: The patient is an elderly female who does not appear to be in any distress. VITAL SIGNS: Blood pressure 139/79, heart rate 73, temperature 98.5, respirations 20. HEENT: Normocephalic. NECK: No JVD. CHEST: Clear. HEART: S1 and S2 regular. ABDOMEN: Mild epigastric tenderness. EXTREMITIES: No edema. LABORATORY DATA: SMA-7; sodium 143, potassium 4.2, chloride 109, CO2 23, glucose 291, BUN 28, creatinine 1.1. Hemoglobin and hematocrit 9.1 and 27.2, white count and platelet count are within normal limits. Troponin yesterday was 0.025. EKG on admission revealed sinus rhythm with frequent PVCs in a bigeminy pattern, nonspecific ST-T wave abnormality and with prolonged QT interval. EKG on 11/20/2017 revealed sinus rhythm with ventricular bigeminy. ASSESSMENT: 1. Chest pain without myocardial infarction. 2. Ventricular bigeminy. 3. Hypertriglyceridemia. The triglyceride level on admission was more than 525 and total cholesterol more than 325. 4. Uncontrolled diabetes mellitus. RECOMMENDATIONS: Continue aspirin 81 mg once a day, subcutaneous heparin 5000 units twice a day. Continue Lopressor at 50 mg once a day, Tricor at 145 mg once a day, niacin 1 gm daily and transfer the patient to Telemetry. Obtain one more set of troponin and repeat 12-lead EKG. The most recent echocardiograph study was in November 2016 which revealed ejection fraction. I would repeat an echocardiograph study. Jomar Daniel MD
[2017-11-23] MEDS: Ciprofloxacin 200mg/100ml D5W 100 ML IVPB SCH ×2 (06:01→18:33)
[2017-11-23] MEDS ORDERED: (Lantus) Insulin Glargine, Recombinant SC SCH ×2 (07:16→10:00)
[2017-11-23] MEDS: HYDROmorphone 0.5 mg/0.5 ml ISec IVP PRN (07:54)
[2017-11-23] MEDS: (Novolin R) Insulin Human Regular 100 units/ml vial SC SCH ×2 (08:00→12:29)
--- NOTE | 2017-11-23 10:09 | CP.PCM.PN ---
<Luci Way - Last Filed: 11/23/17 10:04> Subjective - Date & Time of Evaluation Date of Evaluation: 11/23/17 Time of Evaluation: 10:05 - Subjective Subjective: Gastroenterology Fellow/PGY5 Progress Note Patient notes improved epigastric pain. Tolerating low fat diet. No bowel movement yesterday.A 12-point review of systems negative except for as above. Objective - Vital Signs/Intake and Output Vital Signs (last 24 hours): Temp Pulse Resp BP Pulse Ox 97.7 F 67 20 134/84 100 11/23/17 07:00 11/23/17 07:00 11/23/17 07:00 11/23/17 07:00 11/23/17 07:00 Intake and Output: 11/23/17 11/23/17 06:59 18:59 Intake Total 110 Balance 110 - Medications Medications: Current Medications Aspirin (Aspirin Chewable) 81 mg PO 0930 [facility] Last Admin: 11/23/17 09:15 Dose: 81 mg Fenofibrate (Tricor) 145 mg PO QPM [facility] Last Admin: 11/22/17 17:33 Dose: 145 mg Glimepiride (Amaryl) 4 mg PO BID [facility] Last Admin: 11/23/17 09:15 Dose: 4 mg Heparin Sodium (Porcine) (Heparin) 5,000 units IV Q12 [facility] Last Admin: 11/22/17 21:49 Dose: 5,000 units Hydromorphone HCl (Dilaudid) 0.5 mg IVP Q6H PRN PRN Reason: Pain, severe (8-10) Last Admin: 11/23/17 07:54 Dose: 0.5 mg Ciprofloxacin (Cipro 200mg/100ml D5w) 100 mls @ 67 mls/hr IVPB Q12H [facility] PRN Reason: Protocol Last Admin: 11/23/17 06:01 Dose: 67 mls/hr Insulin Glargine (Lantus) 20 unit SC Q12 [facility] Last Admin: 11/23/17 09:25 Dose: 20 units Insulin Human Regular (Novolin R) 0 unit SC ACHS [facility] PRN Reason: Protocol Last Admin: 11/23/17 08:00 Dose: 6 unit Metoprolol Tartrate (Lopressor) 50 mg PO BID [facility] Last Admin: 11/23/17 09:23 Dose: 50 mg Niacin (Niacin) 1,000 mg PO HS [facility] Last Admin: 11/22/17 21:50 Dose: 1,000 mg Iebvw-2-Zjex Ethyl Esters (Lovaza) 2 gm PO BID [facility] Last Admin: 11/18/17 09:19 Dose: 2 gm Ondansetron HCl (Zofran Inj) 8 mg IVP Q8H PRN PRN Reason: Nausea/Vomiting Last Admin: 11/23/17 07:54 Dose: 8 mg Pantoprazole Sodium (Protonix Inj) 40 mg IVP DAILY [facility] Last Admin: 11/23/17 09:14 Dose: 40 mg - Labs Labs: 11/21/17 06:50 11/22/17 06:30 - Constitutional Appears: Non-toxic, No Acute Distress - Head Exam Head Exam: ATRAUMATIC, NORMOCEPHALIC - Eye Exam Eye Exam: EOMI, PERRL. absent: Scleral icterus Pupil Exam: PERRL. absent: Miosis, Mydriatic - ENT Exam ENT Exam: Mucous Membranes Moist, Normal Oropharynx - Neck Exam Neck Exam: Full ROM, Normal Inspection - Respiratory Exam Respiratory Exam: Clear to Ausculation Bilateral. absent: Rales, Rhonchi, Wheezes - Cardiovascular Exam Cardiovascular Exam: RRR, +S1, +S2. absent: Gallop, Rubs - GI/Abdominal Exam GI & Abdominal Exam: Soft, Tenderness, Normal Bowel Sounds. absent: Distended, Firm, Guarding, Rigid, Organomegaly, Rebound Additional comments: epigastric discomfort to palpation - Extremities Exam Extremities Exam: Normal Inspection. absent: Pedal Edema - Neurological Exam Neurological Exam: Alert, Awake - Psychiatric Exam Psychiatric exam: Normal Affect, Normal Mood - Skin Skin Exam: Dry, Intact, Normal Color, Warm Assessment and Plan - Assessment and Plan (Free Text) Assessment: 67 year old female with PMH of pancreatitis 2/2 hypertriglyceridemia, HTN, DM, HLD, CAD s/p PCI, and diastolic dysfunction presenting with epigastric pain. Active treatment of acute mild pancreatitis with CT A/P showing pancreatic head and body inflammation. Prior EGD 07/2016 showed H. pylori negative gastritis. Plan: -TGs 910 -on fenofibrate 145mg daily -improve glycemic control -endocrinology consult ordered, follow recommendations -repeat CT A/P- resolving pancreatitis, no signs of necrosis or diverticulitis -recommend stopping antibiotics -tolerating low fat diet -cardiology managing- pending ECHO -thank you for opportunity to participate in the care of this patient, please contact with questions or concerns <Randal Lindsey - Last Filed: 11/23/17 10:43> Objective - Vital Signs/Intake and Output Vital Signs (last 24 hours): Temp Pulse Resp BP Pulse Ox 97.7 F 67 20 134/84 100 11/23/17 07:00 11/23/17 07:00 11/23/17 07:00 11/23/17 07:00 11/23/17 07:00 Intake and Output: 11/23/17 11/23/17 06:59 18:59 Intake Total 110 Balance 110 - Medications Medications: Current Medications Aspirin (Aspirin Chewable) 81 mg PO 0930 [facility] Last Admin: 11/23/17 09:15 Dose: 81 mg Fenofibrate (Tricor) 145 mg PO QPM [facility] Last Admin: 11/22/17 17:33 Dose: 145 mg Glimepiride (Amaryl) 4 mg PO BID [facility] Last Admin: 11/23/17 09:15 Dose: 4 mg Heparin Sodium (Porcine) (Heparin) 5,000 units IV Q12 [facility] Last Admin: 11/22/17 21:49 Dose: 5,000 units Hydromorphone HCl (Dilaudid) 0.5 mg IVP Q6H PRN PRN Reason: Pain, severe (8-10) Last Admin: 11/23/17 07:54 Dose: 0.5 mg Ciprofloxacin (Cipro 200mg/100ml D5w) 100 mls @ 67 mls/hr IVPB Q12H [facility] PRN Reason: Protocol Last Admin: 11/23/17 06:01 Dose: 67 mls/hr Insulin Glargine (Lantus) 20 unit SC Q12 [facility] Last Admin: 11/23/17 09:25 Dose: 20 units Insulin Human Regular (Novolin R) 0 unit SC ACHS [facility] PRN Reason: Protocol Last Admin: 11/23/17 08:00 Dose: 6 unit Metoprolol Tartrate (Lopressor) 50 mg PO BID [facility] Last Admin: 11/23/17 09:23 Dose: 50 mg Niacin (Niacin) 1,000 mg PO HS [facility] Last Admin: 11/22/17 21:50 Dose: 1,000 mg Fnakd-7-Zpjc Ethyl Esters (Lovaza) 2 gm PO BID [facility] Last Admin: 11/18/17 09:19 Dose: 2 gm Ondansetron HCl (Zofran Inj) 8 mg IVP Q8H PRN PRN Reason: Nausea/Vomiting Last Admin: 11/23/17 07:54 Dose: 8 mg Pantoprazole Sodium (Protonix Inj) 40 mg IVP DAILY [facility] Last Admin: 11/23/17 09:14 Dose: 40 mg - Labs Labs: 11/21/17 06:50 11/22/17 06:30 Attending/Attestation - Attestation I have personally seen and examined this patient.: Yes I have fully participated in the care of the patient.: Yes I have reviewed all pertinent clinical information, including history, physical exam and plan: Yes Notes (Text): 11/23/17 10:41 67 year old female admitted with recurrent acute pancreatitis due to hypertriglyceridemia. Resolving. Low fat diet. Fibrate therapy. Endocrine eval appreciated. Will sign off.
--- NOTE | 2017-11-23 14:32 | CARD ---
APPROVED REPORT EXAM: Two-dimensional and M-mode echocardiogram with Doppler and color Doppler. Other Information Quality : GoodRhythm : INDICATION Cardiomyopathy Chest Pain Congestive Heart Failure Palpitations RISK FACTORS Hypertension Diabetes 2D DIMENSIONS IVSd1.5 (0.7-1.1cm)LVDd4.7 (3.9-5.9cm) PWd1.3 (0.7-1.1cm)LVDs3.9 (2.5-4.0cm) FS (%) 17.0 %LVEF (%)35.6 (>50%) M-Mode DIMENSIONS RVDd2.45 (2.1-3.2cm)Left Atrium (MM)3.75 (2.5-4.0cm) IVSd1.13 (0.7-1.1cm)Aortic Root3.07 (2.2-3.7cm) LVDd5.65 (4.0-5.6cm)Aortic Cusp Exc.1.91 (1.5-2.0cm) PWd1.10 (0.7-1.1cm)FS (%) 25 % LVDs4.22 (2.0-3.8cm)LVEF (%)39 (>50%) Mitral Valve MV E Vayrlysk673.0cm/sMV A Uoeulykl17.2cm/sE/A ratio1.3 TDI E/Lateral E'0.0E/Medial E'0.0 Tricuspid Valve TR Peak [id number]/sTR Peak Gr.[id number] LEFT VENTRICLE The Left Ventricle is borderline dilated. There is mild concentric left ventricular hypertrophy. The Ejection Fraction is 40-45%. There is global hypokinesis of the left ventricle. Transmitral Doppler flow pattern is Grade II-pseudonormal filling dynamics. The left atrial pressure is mildly elevated. RIGHT VENTRICLE The right ventricle is normal size. The right ventricular systolic function is normal. ATRIA The left atrium size is normal. The right atrium size is normal. The interatrial septum is intact with no evidence for an atrial septal defect. AORTIC VALVE The aortic valve is normal in structure. No aortic regurgitation is present. MITRAL VALVE The mitral valve is normal in structure. Mitral regurgitation is moderate. TRICUSPID VALVE The tricuspid valve is normal in structure. There is mild to moderate tricuspid regurgitation. Right ventricular systolic pressure is estimated at 44 mmHg. There is mild-moderate pulmonary hypertension. PULMONIC VALVE The pulmonary valve is normal in structure. There is mild pulmonic valvular regurgitation. GREAT VESSELS The aortic root is normal in size. The IVC is normal in size and collapses >50% with inspiration. PERICARDIAL EFFUSION There is no pericardial effusion. <Conclusion> The Left Ventricle is borderline dilated. There is mild concentric left ventricular hypertrophy. The Ejection Fraction is 40-45%. There is global hypokinesis of the left ventricle. Transmitral Doppler flow pattern is Grade II-pseudonormal filling dynamics. The left atrial pressure is mildly elevated. Mitral regurgitation is moderate. There is mild to moderate tricuspid regurgitation. Right ventricular systolic pressure is estimated at 44 mmHg. There is mild-moderate pulmonary hypertension. The aortic root is normal in size.
--- NOTE | 2017-11-23 17:23 | PN ---
DATE: 11/23/2017 SUBJECTIVE: The patient denies history of significant chest pain. She did experience nausea today. No vomiting. She tolerated her breakfast. PHYSICAL EXAMINATION: VITAL SIGNS: Blood pressure 134/84, heart rate 67, temperature 97.7, respirations 20. HEENT: Normocephalic. CHEST: Clear. HEART: S1 and S2 regular. EXTREMITIES: No edema. ASSESSMENT: 1. Chest pain. 2. History of coronary artery disease, status post percutaneous coronary intervention to the left anterior descending twice in the past. 3. Uncontrolled diabetes mellitus. 4. Improved acute pancreatitis. RECOMMENDATIONS: 1. Continue current aspirin 81 mg once a day. 2. Subcutaneous heparin 5000 units every 12 hours. 3. Lopressor 50 mg twice a day. 4. Niacin 1 gm nightly. 5. Tricor 145 mg once a day. 6. IV Zofran p.r.n. 7. The patient agrees for cardiac catheterization, which will be scheduled for tomorrow at around noon time. The patient will be kept NPO after midnight. The procedure and its risks were fully explained to the patient as well as her daughter, who was at the bedside. Jomar Daniel MD
[2017-11-23] MEDS: (Novolog) Insulin Aspart, Recombinant 100 u/ml 10 ml vial SC SCH ×3 (18:34→21:03)
[2017-11-23] MEDS: (Lantus) Insulin Glargine, Recombinant SC SCH (21:03)
--- NOTE | 2017-11-23 23:58 | PN ---
DATE: 11/23/2017 DAILY PROGRESS NOTE SUBJECTIVE: The patient is seen today, 11/23/2017. She is not in any cardiopulmonary distress. OBJECTIVE: VITAL SIGNS: Blood pressure 139/73, temperature 98.2, respiratory rate 20, and pulse 62. HEENT: Pupils equal, reactive to light. Normal-appearing mucosa of the conjunctivae, oropharynx and nasal membrane mucosa. NECK: Supple. No JVD. No carotid bruit. No lymph node. No thyromegaly. CHEST AND LUNGS: Bilateral symmetrical expansion. Good air exchange. No rales, no rhonchi. CARDIOVASCULAR SYSTEM: PMI not localized. S1, S2. No additional sounds. ABDOMEN: Normoactive bowel sounds. No tenderness. No organomegaly. No masses. EXTREMITIES: No cyanosis, no clubbing, no edema. 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 No neurological deficit could be appreciated. ASSESSMENT: 1. Status post acute pancreatitis. 2. Chest pain, rule out acute coronary syndrome. 3. History of coronary artery disease. 4. Type 2 diabetes mellitus. 5. Hypertriglyceridemia. PLAN: Endocrinology consult. Follow Cardiology recommendations. Continue current treatment. Yue Cota MD
--- NOTE | 2017-11-24 03:10 | CON ---
DATE: ENDOCRINOLOGY CONSULTATION LOCATION: Room 663. HISTORY OF PRESENT ILLNESS: This is a 67-year-old female with known history of type 2 insulin-requiring diabetes, presenting here with severe epigastric pain and supervening nausea, dyspepsia and vomiting and is now being referred for endocrine evaluation of marked dyslipidemia and also for diabetic management. PAST MEDICAL HISTORY: As mentioned above, history of type 2 insulin-requiring diabetes, on a combination of Lantus given as 40 units subcu every 12 hours as given. She was also Humalog given as 30 units b.i.d. with Amaryl also given as 4 mg b.i.d. as ordered. History of hypertension and dyslipidemia. Also history of coronary artery disease with significant cardiac vasculopathy and prior coronary stent placements with underlying cardiac tachyarrhythmia. History of prior admissions for congestive heart failure and currently on cardiac medications as noted. She has previous history of Graves disease and current off Tapazole medication at this time. History of hypertension and dyslipidemia. History of diabetic retinopathy and polyneuropathy with underlying peripheral arterial disease and vasculopathy. FAMILY HISTORY: Positive for hypertension and diabetes. SOCIAL HISTORY: The patient has supportive family. No known substance use. REVIEW OF SYSTEMS: As mentioned above, admits to generalized body weakness with episodic bouts of dizziness and lightheadedness, worse on the day of admission. Also admits to episodic hypersomnolence and lethargy with suboptimal energy level. No chest pains, palpitations or PNDs. Her oral intake has been variable with nausea, dyspepsia and supervening intractable vomiting episodes. Also admits to marked polyuria, nocturia, polydipsia and polyphagia prior to admission. Also admits to lower extremity painful paresthesias especially nocturnally. PHYSICAL EXAMINATION: GENERAL: This is an average-built female, in no apparent distress. VITAL SIGNS: Blood pressure 140/80, pulse of 70 beats per minute and regular, temperature 99, respirations 20. Height is 5 feet 2 inches. Weight is 158 pounds. HEENT: Head is normocephalic. Eyes are anicteric with pink conjunctivae. Funduscopy is not possible at this time. Ears, nose, and throat otherwise normal. NECK: Supple. Thyroid gland is normal size. No carotid bruits or cervical adenopathy. CARDIOPULMONARY: Adynamic precordium. S1 and S2, is rapid and regular. LUNGS: Clear to auscultation. ABDOMEN: Flat, soft with positive bowel sounds. EXTREMITIES: No peripheral edema. Pulses are +2 bilaterally. LABORATORY DATA: Her chemistries showed a BUN of 21, sodium 141, potassium 3.6, chloride 106, CO2 is 25, glucose is 290, and creatinine is 1.1. Her glucose levels are ranged from 396 to 443 and 496 mg/dL. Her triglyceride levels are 910 with a cholesterol of 259, LDL of less than 30, HDL of 22. Calcium level initially was 8.2 with a lipase of 341. ASSESSMENT: This is a 67-year-old female with acute and recurrent pancreatitis on the background of uncontrolled type 2 insulin-requiring diabetes with marked hyperglycemic accelerations and is now being referred for diabetic and endocrine evaluation and management. We have to exclude also the possibility of any underlying familial dyslipidemia or chylomicronemia as noted thereof. She also has diabetic microvascular complications of retinopathy and polyneuropathy with diabetic macrovascular complications of coronary artery disease with previous coronary stent placement and peripheral arterial disease and vasculopathy. PLAN OF MANAGEMENT: As discussed with the patient and staff, we will continue her present IV hydration as given and modify her insulin regimen to more physiologic basal and bolus insulin drug combination as given. We will start with NovoLog given as 14 units subcu t.i.d. before meals to start at dinner time today as ordered. We will modify the coverage scale to obviate hypoglycemia, and detailed orders have been given. We will also titrate her basal insulin with Lantus to be given as 30 units subcu every 12 hours to start today. We will obtain serial chemistries and supplement accordingly as needed. We will also continue her fenofibrate, and we will add omega-3 fatty acids as given. We will obtain serial chemistries and supplement accordingly as needed. We will also obtain a lipid or lipoprotein fractionation to confirm any underlying familial combined dyslipidemia. Hemoglobin A1c will also be done to confirm her prior glycemic control. We will follow with you. Noemi Taylor MD
[2017-11-24] MEDS: HYDROmorphone 0.5 mg/0.5 ml ISec IVP PRN (05:48)
[2017-11-24] MEDS: Ciprofloxacin 200mg/100ml D5W 100 ML IVPB SCH (06:33)
[2017-11-24] MEDS: (Novolog) Insulin Aspart, Recombinant 100 u/ml 10 ml vial SC SCH ×7 (07:38→21:37)
[2017-11-24] MEDS: (Lantus) Insulin Glargine, Recombinant SC SCH ×2 (10:35→22:13)
[2017-11-24 11:40] LABS: PROTHROMBIN TIME 11.3 SECONDS (9.7-12.2)
[2017-11-24] MEDS ORDERED: Midazolam 2 MG/2 ML VIAL ONE (13:25)
[2017-11-24] MEDS ORDERED: Iohexol 350mg/ml 100 ML ONE (14:05)
[2017-11-24] MEDS: Sodium Chloride 0.9% 1,000 ML IV SCH (15:45)
--- NOTE | 2017-11-24 16:47 | PN ---
DATE: SUBJECTIVE: The patient is a 67-year-old [place] female who has a history of coronary artery disease; status post stenting to the LAD twice, most recent one in 2013, in which she underwent stent with chronic total occlusion of a previous stent involving the mid LAD. The patient has history of hyperlipidemia and recurrent pancreatitis because of severe hypertriglyceridemia. She presented with an acute episode of pancreatitis, which resolved. She did report chest pain on and off and is noted to be in ventricular bigeminy. Cardiac catheterization was recommended. The procedure and its risks were thoroughly explained to the patient who understood and agreed for the procedure. PROCEDURE: After local infiltration with 1% lidocaine, a 6-Grenadian sheath was placed to the right femoral artery. Left and right coronary angiography was performed with 6-Grenadian JL4 and JR4 diagnostic catheters. Left ventriculogram and aortogram were performed with a 6-Grenadian pigtail catheter. The patient tolerated the procedure well without any complications. ANGIOGRAPHIC FINDINGS: Selective injection of the left coronary artery revealed a 40% to 50% distal left main disease. The left main bifurcated into medium-sized LAD, medium-sized circumflex artery. The inside in the entire mid LAD segment was patent, however, with residual 30% to 40% narrowing in the proximal part of the long stent. The second diagonal branch which is a side branch at the stent has significant ostial disease. The rest of the LAD circulation was angiographically unremarkable. The circumflex circulation was angiographically unremarkable. The right coronary artery is a medium-sized dominant vessel that has 20% proximal narrowing. The PDA has 50% proximal narrowing. Left ventriculogram performed on KHAN projection revealed apical hypokinesis. Overall ejection fraction estimated at 40%. Aortography performed in the YI projection revealed mildly dilated aortic root arch with moderate dilatation of the descending thoracic aorta. No discrete aneurysm. ASSESSMENT: A 40% to 50% distal left main disease with patent mid left anterior descending stent with residual narrowing of 3% to 4% in the proximal part of the stent with mildly depressed ejection fraction and moderate dilatation of the descending thoracic aorta. RECOMMENDATIONS: Continue with medical therapy. The patient will be discussed with the cardiothoracic surgeon prior to her discharge. Jomar Daniel MD [facility] # [id number]
--- NOTE | 2017-11-24 19:49 | PN ---
DATE: 11/24/2017 LOCATION: Room 663. SUBJECTIVE: This is a 67-year-old female with recent uncontrolled type 2 insulin-requiring diabetes, presenting here with acute pancreatitis and supervening epigastric pain with intractable vomiting episodes and is now improving clinically and metabolically as noted thereof. Her oral intake; however, remains quite variable at this time and the latest glucose values have ranged from 177 to 219 and 246 mg/dL. LABORATORY DATA: Her latest chemistry showed a BUN of 21, sodium 141, potassium 3.6, chloride 106, CO2 25, glucose , and creatinine 1.1. The chemistries ordered for today were not undertaken as ordered. ASSESSMENT AND PLAN: This is an 67-year-old female with uncontrolled and decompensated type 2 insulin-requiring diabetes with marked hyperglycemic accelerations and concomitant acute recurrent pancreatitis and is now being followed closely for metabolic management. Plan of management, will continue the same basal and bolus insulin drug combination as ordered. We will continue the Lantus given as 30 units subcu every 12 hours as ordered. We will also continue the NovoLog given as 14 units subcu t.i.d. before meals as ordered. We will continue the low dose correction scale using NovoLog insulin as given. We will obtain serial chemistries and supplement accordingly as needed. We will follow with you. Noemi Taylor MD
--- NOTE | 2017-11-25 00:14 | PN ---
DATE: 11/24/2017 SUBJECTIVE: The patient is seen today 11/24/2017. She is still complaining of episodic pressure-like chest pain. The patient had a cardiac catheterization done by Dr. Daniel today. The patient has left main disease, so Cardiothoracic Surgery consultation was called for evaluation. PHYSICAL EXAMINATION: VITAL SIGNS: Blood pressure 151/86, temperature 97.2, respiratory rate 20 and pulse 67. HEENT: Pupils equal, reactive to light. Normal-appearing mucosa of the conjunctivae, oropharynx and nasal membrane mucosa. NECK: Supple. No JVD. No carotid bruit. No lymph node. No thyromegaly. CHEST AND LUNGS: Bilateral symmetrical expansion. Good air exchange. No rales, no rhonchi. CARDIOVASCULAR SYSTEM: PMI not localized. S1, S2. No additional sounds. ABDOMEN: Normoactive bowel sounds. No tenderness. No organomegaly. No masses. EXTREMITIES: No cyanosis, no clubbing, no edema. AIRCRAFT MECHANIC: Alert, awake, oriented x2. No neurological deficit could be appreciated. ASSESSMENT: 1. Coronary artery disease. 2. Status post acute pancreatitis. 3. Hypertension. 4. Type 2 diabetes mellitus. PLAN: Continue current medications and follow the Cardiothoracic Surgery recommendations and Cardiology recommendations. Yue Cota MD
[2017-11-25] MEDS: (Novolog) Insulin Aspart, Recombinant 100 u/ml 10 ml vial SC SCH ×7 (07:58→22:03)
[2017-11-25 08:12] LABS: ALB/GLOB RATIO 0.9 (1.0-2.1); ALBUMIN 3.2 g/dL (3.5-5.0); ALT/SGPT 17 U/L (9-52); AST/SGOT 21 U/L (14-36); BLOOD UREA NITROGEN 24 mg/dL (7-17); CALCIUM 9.1 mg/dl (8.6-10.4); GFR AFRICAN-AMERICAN 60; GFR NON-AFRICAN AMERICAN 50; HDL CHOLESTEROL 15 mg/dL (30-70); LDL CHOLESTEROL < 30 mg/dL (0-129); LIPASE 103 U/L (23-300)
[2017-11-25] MEDS: (Lantus) Insulin Glargine, Recombinant SC SCH ×2 (09:36→22:06)
[2017-11-25] MEDS: Omega-3-Acid Ethyl Esters 1 GM Cap PO SCH ×2 (11:00→18:21)
[2017-11-25] MEDS: Sodium Chloride 0.9% 1,000 ML IV SCH ×2 (14:24→21:30)
--- NOTE | 2017-11-25 16:33 | PN ---
DATE: 11/25/2017 LOCATION: Room 663. SUBJECTIVE: This is a 67-year-old female admitted with acute and recurrent pancreatitis with severe diffuse upper abdominal pain and is also being followed closely for metabolic management because of recent hyperglycemic accelerations as noted thereof. Her oral intake is variable, but improving at this time as per the Nursing staff. Her glucose levels today have ranged from 284 to 295 mg/dL. Her bedtime glucose was 180 as noted. Her hemoglobin A1c is 10%, which is quite elevated and indicative of suboptimal metabolic control with diabetic condition even prior to this admission. Her latest chemistries done today shows a BUN of 24, sodium 138, potassium 4.6, chloride 101, CO2 29, glucose 304, and creatinine 1.1. ASSESSMENT: This is a 67-year-old female with uncontrolled and decompensated type 2 insulin-requiring diabetes with marked hyperglycemic accelerations and clearly suboptimal metabolic control as outpatient despite a combination of oral hypoglycemic therapy and insulin therapy as given by her primary physician. Moreover, she presented here with acute recurrent pancreatitis and the possibility of an underlying familial chylomicronemia syndrome possibly excluded at this time. PLAN OF MANAGEMENT: As discussed with the patient and the staff. We will modify her current insulin regimen and increase the Lantus up to 30 units subcu every 12 hours at 10 a.m. and 10 p.m. daily as given. We will continue her NovoLog given as 14 units subcu t.i.d. before meals because of the variability of her oral intake at this time. We will continue also the low dose correction scale using NovoLog insulin as given. We will obtain serial chemistries and supplement accordingly as needed. She is also scheduled for possible transfer to the [facility] for cardiac procedure, which is pending at this time. We will follow and advise accordingly. Noemi Taylor MD
[2017-11-25] MEDS: Enoxaparin 40 mg Syringe SC SCH (18:39)
--- NOTE | 2017-11-25 22:17 | PN ---
DATE: 11/25/2017 SUBJECTIVE: The patient denies any chest pain or shortness of breath. No reported groin pain. PHYSICAL EXAMINATION: VITAL SIGNS: Blood pressure 144/83, heart rate 67, temperature 98.3, respirations 20. HEENT: Normocephalic. CHEST: Clear. HEART: S1, S2 are regular. EXTREMITIES: No hematoma and no pedal edema. LABORATORY DATA: Today's SMA-7, sodium 138, potassium 4.6, chloride 101, CO2 29, glucose , BUN 24, creatinine 1.1. Triglycerides more than 1575, total cholesterol 209, HDL cholesterol is 15. ASSESSMENT: 1. Unstable angina with 50% distal left main disease. 2. Uncontrolled diabetes mellitus. 3. Significant hypertriglyceridemia. 4. Improving pancreatitis. RECOMMENDATIONS: Case was discussed at the length with the cardiothoracic surgeon, Dr. Medina who evaluated the and I did review the coronary angiogram with him and he strongly recommended coronary artery bypass surgery. Case was further discussed with Dr. Cota and the patient and her daughter all given a copy of the cardiac catheterization CD in case they want to seek a second opinion on their own or just a cardio surgical opinion. In the meantime, the patient will be maintained on niacin at 1 gm daily, Tricor 145 mg once a day, metoprolol 50 mg twice a day, aspirin 81 mg once a day. We will start subcutaneous Lovenox at 40 mg daily. Jomar Daniel MD
--- NOTE | 2017-11-25 23:48 | PN ---
DATE: 11/25/2017 SUBJECTIVE: The patient is seen today 11/25/2017. She is not in any cardiopulmonary distress. PHYSICAL EXAMINATION: VITAL SIGNS: Blood pressure 158/83, temperature 98.3, respiratory rate 20 and pulse 80. HEENT: Pupils equal, reactive to light. Normal-appearing mucosa of the conjunctivae, oropharynx and nasal membrane mucosa. NECK: Supple. No JVD. No carotid bruit. No lymph node. No thyromegaly. CHEST AND LUNGS: Bilateral symmetrical expansion. Good air exchange. No rales, no rhonchi. CARDIOVASCULAR SYSTEM: PMI not localized. S1, S2. No additional sounds. ABDOMEN: Normoactive bowel sounds. No tenderness. No organomegaly. No masses. EXTREMITIES: No cyanosis, no clubbing, no edema. SPIKE MACHINE HEATER: Alert, awake, oriented x3. No neurological deficit could be appreciated. ASSESSMENT: 1. Coronary artery disease. 2. Status post acute pancreatitis. 3. Hypertriglyceridemia. 4. Type 2 diabetes mellitus. 5. Hypertension. PLAN: The patient to resume [place]-3. Continue current medications. Follow Cardiology and Cardiothoracic Surgery recommendations. Continue beta chidi and aspirin and will give the aspirin half an hour before the niacin. Karol MD Cipriano
[2017-11-26 08:19] LABS: BASO % 0.4 % (0.0-2.0); EOS # 0.2 K/uL (0.0-0.7); EOS % 2.6 % (0.0-4.0); LYMPH # 2.2 K/uL (1.0-4.3); LYMPH % 31.3 % (20.0-40.0); MEAN CELL VOLUME 88.1 fL (81.0-99.0); MEAN CORPUSCULAR HEMOGLOBIN 31.5 pg (27.0-31.0); MEAN CORPUSCULAR HGB CONC 35.7 g/dL (33.0-37.0); MEAN PLATELET VOLUME 8.9 fL (7.2-11.7); MONO # 0.3 K/uL (0.0-0.8); MONO % 4.8 % (0.0-10.0); NEUT # 4.3 K/uL (1.8-7.0); NEUT % 60.9 % (50.0-75.0); NRBC % 0.2 % (0.0-2.0); RBC 3.51 Mil/uL (3.80-5.20); RED CELL DISTRIBUTION WIDTH 16.2 % (11.5-14.5)
[2017-11-26 08:27] LABS: BLOOD UREA NITROGEN 24 mg/dL (7-17); CALCIUM 8.9 mg/dl (8.6-10.4); GFR AFRICAN-AMERICAN > 60; GFR NON-AFRICAN AMERICAN 55
[2017-11-26] MEDS: Enoxaparin 40 mg Syringe SC SCH (09:50)
[2017-11-26] MEDS: Omega-3-Acid Ethyl Esters 1 GM Cap PO SCH ×2 (09:51→18:00)
[2017-11-26] MEDS: (Novolog) Insulin Aspart, Recombinant 100 u/ml 10 ml vial SC SCH ×6 (09:51→22:22)
[2017-11-26] MEDS: (Lantus) Insulin Glargine, Recombinant SC SCH ×2 (14:27→22:22)
--- NOTE | 2017-11-26 15:21 | PN ---
DATE: LOCATION: Room 663. SUBJECTIVE: This is a 67-year-old female presenting here with acute recurrent pancreatitis with supervening marked hyperglycemic accelerations and is now being followed closely for metabolic management. LABORATORY DATA: Her glycemic levels are still fluctuating as noted and the glucose values overnight have ranged from 265 to 364 mg/dL. Her latest chemistries shows a BUN of 24, sodium 140, potassium 4.2, chloride 102, CO2 26, glucose 279, and creatinine 1. ASSESSMENT: This is a 67-year-old female with uncontrolled and decompensated type 2 insulin-requiring diabetes now being followed closely for metabolic management. She also has acute recurrent pancreatitis with the possibility of a combination of familial combined dyslipidemia contributing to the aforementioned besides a suboptimal metabolic control with diabetic condition also contributing to the dyslipidemia as noted. We will also try to exclude the possibility of a more severe metabolic condition such as the familial chylomicronemia syndrome and we are awaiting the reports of the lipoprotein fractionation as ordered. PLAN OF MANAGEMENT: We will modify once again her basal and bolus insulin regimen and increase the basal insulin with Lantus to be given as 40 units subcu every 12 hours to start this morning. We will titrate incrementally as indicated to optimize metabolic control. We will also modify her prandial insulin and increase the NovoLog to 20 units subcu t.i.d. before meals as ordered. This will be started at lunch time today as given. We will continue to modify low dose correction scale to alleviate hypoglycemia and detailed orders have been given. We will obtain serial chemistries and serial lipase and lipid panel levels as ordered. The repeat triglycerides are still elevated actually today at 21:48 to 148 as noted. We will continue also the omega-3 fatty acids given as 2 gm b.i.d. and the niacin given as 1000 mg at bedtime. Moreover, she is also on fenofibrate at 145 mg at bedtime as ordered. We will obtain serial chemistries and supplement accordingly as needed. We will follow with you. Noemi Taylor MD
--- NOTE | 2017-11-26 15:31 | PN ---
DATE: 11/26/2017 SUBJECTIVE: The patient denies any abdominal pain. She has chest tightness on and off. PHYSICAL EXAMINATION: VITAL SIGNS: Blood pressure 152/85, heart rate 66, temperature 97.9, respirations 20. HEENT: Normocephalic. CHEST: Clear. HEART: S1, S2 regular. ABDOMEN: Soft. EXTREMITIES: No edema. LABORATORY DATA: Today's SMA-7 is within normal limits except for glucose of 259, and BUN of 24. Triglycerides 2148. Hemoglobin and hematocrit 11 and 30.9, white count 7, platelet count 282,000. ASSESSMENT: 1. 50% distal left main disease with mild increased ejection fraction. 2. Status post gastritis. 3. Hypertriglyceridemia. 4. Uncontrolled diabetes mellitus. RECOMMENDATIONS: Continue aspirin 81 mg once a day, Lopressor 50 mg once a day, subcutaneous Lovenox 40 mg once a day, niacin at 1 gm daily, TriCor 145 mg once a day. I recommend dietary caloric intake to 1200 calories daily. The patient agreed to go for coronary artery bypass surgery next week. Jomar Daniel MD
[2017-11-26] MEDS: Sodium Chloride 0.9% 1,000 ML IV SCH (22:22)
--- NOTE | 2017-11-26 22:31 | PN ---
DATE: 11/26/2017 SUBJECTIVE: The patient is seen today, 11/26/2017. She is not in any cardiopulmonary distress, and the patient is tolerating diet. Triglyceride is up to about 2000. OBJECTIVE: VITAL SIGNS: Blood pressure 130/60, temperature 98.1, respiratory rate 20, and pulse 70. HEENT: Pupils equal and reactive to light. Normal-appearing mucosa of the conjunctivae, oropharynx, and nasal membrane mucosa. NECK: Supple. No JVD. No carotid bruit. No lymph node. No thyromegaly. CHEST AND LUNGS: Bilateral symmetrical expansion. Good air exchange. No rales, no rhonchi. CARDIOVASCULAR SYSTEM: PMI not localized. S1, S2. No additional sounds. ABDOMEN: Normoactive bowel sounds. No tenderness. No organomegaly. No masses. EXTREMITIES: No cyanosis, no clubbing, no edema. SECURITY DELIVERY SPECIALIST: Alert, awake, and oriented x3. No neurological deficit could be appreciated. ASSESSMENT: Acute pancreatitis, hypertriglyceridemia, coronary artery disease, type 2 diabetes mellitus, hypothyroidism. PLAN: Continue current medication and insulin regimen. We will follow recommendation of cardiothoracic surgery. Yue Cota MD
[2017-11-27] MEDS: (Novolog) Insulin Aspart, Recombinant 100 u/ml 10 ml vial SC SCH ×7 (07:38→22:46)
[2017-11-27] MEDS: Pantoprazole 40 mg EC Tab PO SCH (10:08)
[2017-11-27] MEDS: Enoxaparin 40 mg Syringe SC SCH (10:08)
[2017-11-27] MEDS: Omega-3-Acid Ethyl Esters 1 GM Cap PO SCH ×2 (10:08→18:35)
[2017-11-27] MEDS: (Lantus) Insulin Glargine, Recombinant SC SCH ×2 (10:08→22:59)
[2017-11-27] MEDS: Sodium Chloride 0.9% 1,000 ML IV SCH (14:41)
--- NOTE | 2017-11-27 16:15 | PN ---
DATE: ENDO FOLLOWUP NOTE LOCATION: Room 663. SUBJECTIVE: This is a 67-year-old female with recent admission for acute recurrent pancreatitis and is slowly improving clinically and biochemically as noted thereof. She also had supervening hyperglycemic accelerations and has been restarted back on her basal and bolus insulin regimen as stated. Her glucose levels have ranged from 166 to 232 mg/dL. Her latest chemistries showed a BUN of 24, sodium 140, potassium 4.2, chloride 102, CO2 26, glucose 279, and creatinine 1. Her triglyceride levels are still elevated at 2148. Her hemoglobin A1c is also quite elevated at 10%, which is also contributing to the high triglyceride values with the impaired lipoprotein lipase activity as expected. ASSESSMENT: This is a 67-year-old female with acute recurrent pancreatitis and possibility of the so-called familial chylomicronemia syndrome has to be excluded at this time, and also the possibility of a familial combined dyslipidemia also has to be brought in pending the availability of the pheno type being sent in reference to that. She also has uncontrolled type 2 insulin-requiring diabetes with recent hyperglycemic accelerations as noted thereof. PLAN OF MANAGEMENT: I discussed with the patient plan of care at the bedside. We will continue the modified basal and bolus insulin regimen as given with a higher dose of NovoLog given at 20 units subcu t.i.d. before meals as ordered. We will increase the Lantus to 40 units subcu every 12 hours at 10 a.m. and 10 p.m daily as ordered. We will continue the low-dose correction scale using NovoLog insulin as given to alleviate hypoglycemia and detailed orders have been given. We will obtain serial lipase levels and serial lipid panel levels with the serial chemistries and supplement accordingly as needed. We will continue also to hibernate tracing as ordered. We will await the results of the lipoprotein fractionation reference allowed. This will confirm and/or negate the presence of underlying familial combined dyslipidemia as noted. We will follow. Noemi Taylor MD
[2017-11-27 16:58] LABS: LIPASE 121 U/L (23-300)
--- NOTE | 2017-11-27 20:07 | PN ---
DATE: SUBJECTIVE: The patient is experiencing epigastric and lower sternal pain. She denies any vomiting. She denies history of retrosternal chest pain. PHYSICAL EXAMINATION: VITAL SIGNS: Blood pressure 153/88, heart rate 69, temperature 98.4, respirations 20. HEENT: Normocephalic. CHEST: Clear. HEART: S1 and S2, regular. ABDOMEN: Soft. EXTREMITIES: No edema. ASSESSMENT: 1. 50% distal left main disease. 2. Severe hypertriglyceridemia. 3. Status post acute pancreatitis. 4. Uncontrolled diabetes mellitus. RECOMMENDATIONS: Continue mg twice a day, aspirin 81 mg once a day, Lopressor 50 mg twice a day, Lovenox 40 mg subcutaneous once a day, TriCor 145 mg once a day, Zofran 8 mg intravenously every 8 hours p.r.n. for nausea or vomiting. I did request lipase and triglyceride levels as well as an EKG. Jomar Daniel MD
[2017-11-28] MEDS: HYDROmorphone 0.5 mg/0.5 ml ISec IVP PRN (05:55)
[2017-11-28] MEDS: (Novolog) Insulin Aspart, Recombinant 100 u/ml 10 ml vial SC SCH ×7 (07:36→21:28)
[2017-11-28 07:57] LABS: ALBUMIN 3.7 g/dL (3.5-5.0); ALT/SGPT < 6 U/L (9-52); AST/SGOT 19 U/L (14-36); BLOOD UREA NITROGEN 23 mg/dL (7-17); CALCIUM 8.7 mg/dl (8.6-10.4); GFR AFRICAN-AMERICAN 60; GFR NON-AFRICAN AMERICAN 50; HDL CHOLESTEROL 16 mg/dL (30-70); LIPASE 113 U/L (23-300)
[2017-11-28 08:04] LABS: LDL CHOLESTEROL < 30 mg/dL (0-129)
[2017-11-28] MEDS: Enoxaparin 40 mg Syringe SC SCH (10:13)
[2017-11-28] MEDS: Omega-3-Acid Ethyl Esters 1 GM Cap PO SCH ×2 (10:13→17:41)
[2017-11-28] MEDS: Pantoprazole 40 mg EC Tab PO SCH (10:13)
[2017-11-28] MEDS: (Lantus) Insulin Glargine, Recombinant SC SCH ×2 (10:25→21:29)
[2017-11-28 16:14] VITALS: PULSE 79
--- NOTE | 2017-11-28 16:41 | PN ---
DATE: ENDO FOLLOWUP NOTE ROOM 663. SUBJECTIVE: This is 67-year-old female with recent uncontrolled type 2 insulin-requiring diabetes, presenting here with acute pancreatitis with underlying marked dyslipidemia and is now being followed closely for metabolic management. Her oral intake has improved as noted, although remains quite variable as per the nursing staff. Her glucose levels overnight have ranged from 152 to 190 mg/dL. The latest chemistry showed a BUN of 23, sodium 139, potassium 4.2, chloride 104, CO2 of 27, glucose 191, and creatinine 1.1. Her triglyceride levels are slowly coming down at 1672 with a cholesterol of 218 mg/dL, and a lipase level of 113 which has normalized at this time. So for now, we will continue the same basal and bolus insulin regimen to allow for dose equilibration and keep her on the NovoLog given as 10 units subcu t.i.d. before meals as ordered. We will continue also the modified basal insulin given as Lantus at 30 units subcu every 12 hours at 10 a.m. and 10 p.m. daily as given. We will titrate incrementally as indicated to optimize metabolic control. We will also continue her Amaryl given as 4 mg b.i.d. as given. We will obtain serial chemistries and supplement accordingly as needed. We will follow with you. Noemi Taylor MD
[2017-11-28 18:15] VITALS: BP 147/71; TEMP 97.7; O2SAT 97
--- NOTE | 2017-11-28 19:55 | PN ---
DATE: 11/28/2017 SUBJECTIVE: The patient denies chest pain, abdominal pain has improved. She is tolerating solid diet. PHYSICAL EXAMINATION: VITAL SIGNS: Blood pressure 144/90, heart rate 83, temperature 97.8, respirations 20. HEENT: Normocephalic. CHEST: Clear. HEART: S1 and S2, regular. ABDOMEN: Soft. EXTREMITIES: No edema. LABORATORY DATA: Today's SMA-7 is within normal limits except for glucose of 191 and BUN of 23. Triglycerides 1672. Lipase level is within normal limit. EKG done yesterday revealed sinus rhythm with frequent PVCs and prolonged QT interval. ASSESSMENT: 1. A 50% distal left main disease. 2. Frequent ventricular ectopy. 3. Status post acute pancreatitis. 4. Hypertriglyceridemia. 5. Uncontrolled diabetes mellitus. RECOMMENDATIONS: Continue current aspirin 81 mg once a day, Amaryl 4 mg twice a day, Lopressor 50 mg twice a day, Lovenox 40 mg subcutaneously once a day, TriCor 145 mg once a day, Zofran 8 mg intravenously every 6 to 8 hours p.r.n. The plan is to transfer the patient to [facility] for coronary artery bypass surgery. Jomar Daniel MD
--- NOTE | 2017-11-29 01:39 | PN ---
DATE: 11/28/2017 SUBJECTIVE: The patient is seen today, 11/28/2017. She is having no abdominal pain. Triglycerides still are 1600. OBJECTIVE: VITAL SIGNS: Blood pressure 147/71, temperature 97.7, respiratory rate 20, and pulse 79. HEENT: Pupils equal and reactive to light. Normal-appearing mucosa of the conjunctivae, oropharynx, and nasal membrane mucosa. NECK: Supple. No JVD. No carotid bruit. No lymph node. No thyromegaly. CHEST AND LUNGS: Bilateral symmetrical expansion. Good air exchange. No rales, no rhonchi. CARDIOVASCULAR SYSTEM: PMI not localized. S1, S2. No additional sounds. ABDOMEN: Normoactive bowel sounds. No tenderness. No organomegaly. No masses. EXTREMITIES: No cyanosis, no clubbing, no edema. 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 No neurological deficit could be appreciated. ASSESSMENT: 1. Coronary artery disease with possible need for coronary artery bypass grafting due to left main coronary artery disease. 2. Status post pancreatitis. 3. Hypertriglyceridemia. 4. Type 2 diabetes mellitus. PLAN: We will work in transferring the patient to [facility] for possible CABG. The patient was seen by Dr. Cook and accepted to be transferred to [facility]. Follow recommendations of game advisor in that period. Yue Cota MD
--- NOTE | 2017-11-30 20:20 | DS ---
REASON FOR ADMISSION: This is a 67-year-old [place] female with history of multiple medical problems who was admitted for acute pancreatitis. COURSE OF HOSPITALIZATION: The patient was admitted to medical floor, and she was started on IV fluids. While the patient's pancreatitis was resolving, the patient was developing intermittent pressure-like chest pain. The patient had a cardiology evaluation done by Dr. Daniel. The patient underwent cardiac catheterization that showed about 50% stenosis of the left main coronary artery. Cardiothoracic surgery consultation was done by Dr. Cook, and the patient was transferred to [facility] for possible CABG. FINAL DIAGNOSES: Coronary artery disease, acute pancreatitis, hypertension, type 2 diabetes mellitus. Yue Cota MD
--- NOTE | 2017-12-02 06:31 | CARD ---
APPROVED REPORT EKG Measurement Heart [id number] [id number] <Conclusion> Sinus rhythm with frequent premature ventricular complexes Possible Anterior infarct, age undetermined Abnormal ECG
== END 2017-11-28 22:50 | disposition short-term general hospital (02) | DRG 391 ==
LOC: C.ER 11:21 → C.9E 17:16 → C.3T 17:46 → C.6T 11-22 15:25 → C.3T 11-22 15:52 → C.6T 11-22 17:13
PROVIDERS: ADMIT Internal Medicine; ATTEND Internal Medicine
PROC: B2151ZZ Fluoroscopy of Left Heart using Low Osmolar Contrast (ICD-10-PCS; 2017-11-24)
PROC: B2111ZZ Fluoroscopy of Multiple Coronary Arteries using Low Osmolar Contrast (ICD-10-PCS; 2017-11-24)
PROC: 4A023N7 Measurement of Cardiac Sampling and Pressure, Left Heart, Percutaneous Approach (ICD-10-PCS; principal; 2017-11-24 13:00)
DX: K57.32 Diverticulitis of large intestine without perforation or abscess without bleeding (principal); K85.90 Acute pancreatitis without necrosis or infection, unspecified; I25.110 Atherosclerotic heart disease of native coronary artery with unstable angina pectoris; I50.32 Chronic diastolic (congestive) heart failure; K86.1 Other chronic pancreatitis; E78.5 Hyperlipidemia, unspecified; I11.0 Hypertensive heart disease with heart failure; I49.3 Ventricular premature depolarization; Z79.4 Long term (current) use of insulin; Z95.5 Presence of coronary angioplasty implant and graft; K29.70 Gastritis, unspecified, without bleeding; R00.8 Other abnormalities of heart beat; E03.9 Hypothyroidism, unspecified; E11.319 Type 2 diabetes mellitus with unspecified diabetic retinopathy without macular edema; E11.42 Type 2 diabetes mellitus with diabetic polyneuropathy; E11.51 Type 2 diabetes mellitus with diabetic peripheral angiopathy without gangrene; E11.649 Type 2 diabetes mellitus with hypoglycemia without coma; E11.65 Type 2 diabetes mellitus with hyperglycemia; E78.00 Pure hypercholesterolemia, unspecified; E78.1 Pure hyperglyceridemia

== ENCOUNTER 2018-08-21 08:57 | Outpatient (CLI) | payer MEDICARE | END 2018-08-21 08:58 | disposition home or self-care (01) | LOC: C.CARD 08:57 | DX: I42.9 Cardiomyopathy, unspecified (principal); I10 Essential (primary) hypertension; I49.3 Ventricular premature depolarization; I47.2 Ventricular tachycardia; R06.02 Shortness of breath ==

== ENCOUNTER 2018-08-24 17:50 | Inpatient (IN) | payer MEDICARE ==
[2018-08-24 17:50] VITALS: BMI 29.0
[2018-08-24] MEDS ORDERED: Sodium Chloride 0.9% 1,000 ML IV ONE ×2 (19:24→22:53)
--- NOTE | 2018-08-24 19:24 | C.PDOC ---
History Of Present Illness 67 y/o female presents to the ED complaining of nausea, vomiting, and mid- epigastric pain since 2:00pm today. Pain is described as sharp and severe. Patient reports PMHx of pancreatitis. Denies alcohol use or history of smoking. Otherwise patient has no fever, chills, cough, or URI symptoms. No diarrhea. Time Seen by Provider: 08/24/18 19:24 Chief Complaint (Nursing): Abdominal Pain History Per: Patient History/Exam Limitations: no limitations Onset/Duration Of Symptoms: Hrs (4) Current Symptoms Are (Timing): Still Present Severity: Moderate Pain Scale Rating Of: 6 Location Of Pain/Discomfort: Epigastric Radiation Of Pain To:: None Quality Of Discomfort: Sharp, Burning Associated Symptoms: Nausea, Vomiting Exacerbating Factors: None Alleviating Factors: None Last Bowel Movement: Today Recent travel outside of the [place]: No Additional History Per: Family Past Medical History Reviewed: Historical Data, Nursing Documentation, Vital Signs Vital Signs: Last Vital Signs Temp 97.3 F L 08/24/18 18:04 Pulse 85 08/24/18 18:04 Resp 21 08/24/18 18:04 BP 183/77 H 08/24/18 18:04 Pulse Ox 100 08/24/18 18:04 - Medical History PMH: Anxiety, Arthritis (r foot/ankle), CAD, Cardia Arrhythmia, CHF, Diabetes, Graves' Disease, HTN, Hypercholesterolemia, Hyperlipidemia, Hypothyroidism, Pancreatitis Denies: Chronic Kidney Disease Surgical History: Appendectomy, Coronary Stent (x2) - [facility] CONTINUOUS INVASIVE MECHANICAL VENTILATION <96 CONSEC HRS (01/10/13) CORONAR ARTERIOGR-2 CATH (12/16/13) ENTERAL INFUSION OF CONCENTRATED NUT. SUBSTANCES (01/10/13) EXCISION OF STOMACH, ENDO, DIAGN (06/23/16) FLUOROSCOPY OF LEFT HEART USING LOW OSMOLAR CONTRAST (11/16/17) FLUOROSCOPY OF MULT COR ART USING L OSM CONTRAST (11/16/17) INJECT/INFUSE NEC (12/18/13) INSERT ENDOTRACHEAL TUBE (01/10/13) INSERTION OF INFUSION DEV INTO SUP VENA CAVA, PERC APPROACH (06/23/16) INSERTION OF ONE VASCULAR STENT (12/18/13) INSRT OF DRUG-ELUTING CORON ARTERY STENTS(S) (12/18/13) LEFT HEART CARDIAC CATH (12/16/13) LT HEART ANGIOCARDIOGRAM (12/16/13) MEASURE OF CARDIAC SAMPL & PRESSURE, L HEART, PERC APPROACH (11/16/17) PARENTERAL INFUSION OF CONCENTRATED NUT. SUBSTANCE (01/10/13) PERCUTANEOUS TRANSLUMINAL CORONARY ANGIOPLASTY [PTCA] (12/18/13) PLAIN RADIOGRAPHY OF LEFT HEART USING LOW OSMOLAR CONTRAST (06/23/15) PROCEDURE ON SINGLE VESSEL (12/18/13) Family History: States: Unknown Family Hx - Social History Hx Tobacco Use: No Hx Alcohol Use: No Hx Substance Use: No - Immunization History Hx Tetanus Toxoid Vaccination: No Hx Influenza Vaccination: No Hx Pneumococcal Vaccination: No Review Of Systems Constitutional: Negative for: Fever, Chills ENT: Negative for: Throat Pain Cardiovascular: Negative for: Chest Pain Respiratory: Negative for: Shortness of Breath Gastrointestinal: Positive for: Nausea, Vomiting, Abdominal Pain. Negative for: Diarrhea, Constipation Genitourinary: Negative for: Dysuria, Frequency Musculoskeletal: Negative for: Back Pain Neurological: Negative for: Weakness, Numbness, Dizziness Psych: Negative for: Anxiety Physical Exam - Physical Exam Appears: Non-toxic, In Acute Distress (Moderate painful distress), Other (Actively vomiting in the ED) Skin: Warm, Dry Head: Normacephalic Eye(s): bilateral: Normal Inspection Oral Mucosa: Dry Teeth: Other (Poor dentition) Neck: Trachea Midline, Supple Chest: Symmetrical, Other (CABG scar noted) Cardiovascular: Rhythm Regular Respiratory: No Rales, No Rhonchi, No Wheezing Gastrointestinal/Abdominal: Soft, Tenderness (Mid-epigastric tenderness), No Guarding, No Rebound Back: No CVA Tenderness, No Vertebral Tenderness Extremity: Pedal Edema (trace) Extremity: Bilateral: Atraumatic, Normal Color And Temperature Pulses: Left Dorsalis Pedis: Normal, Right Dorsalis Pedis: Normal Neurological/Psych: Oriented x3 Gait: Steady ED Course And Treatment - Laboratory Results Result Diagrams: 08/24/18 19:30 08/24/18 19:30 O2 Sat by Pulse Oximetry: 100 (RA) Pulse Ox Interpretation: Normal Progress Note: Labs and EKG ordered and reviewed. Administered IV fluids, 4 mg IV Zofran, and 2 mg IV Morphine. Disposition Discussed With DrPaula: Yue Cota Comment: Accepted the pt on his service and took over the care at 10:56 PM Doctor Will See Patient In The: Hospital Counseled Patient/Family Regarding: Studies Performed, Diagnosis - Disposition Disposition: HOSPITALIZED Disposition Time: 19:24 Condition: FAIR Forms: [facility] (Nepali) - POA Present On Arrival: Poor Glycemic Control - Clinical Impression Clinical Impression: Abdominal pain, Acute pancreatitis - Scribe Statement The provider has reviewed the documentation as recorded by the Theodore Cherry Provider Attestation: All medical record entries made by the Mauryibisrael were at my direction and personally dictated by me. I have reviewed the chart and agree that the record accurately reflects my personal performance of the history, physical exam, medical decision making, and the department course for this patient. I have also personally directed, reviewed, and agree with the discharge instructions and disposition. Decision To Admit - Pt Status Changed To: Hospital Disposition Of: Inpatient - Admit Certification Admit to Inpatient:: After my assessment, the patient will require hospitalization for at least two midnights. This is because of the severity of symptoms shown, intensity of services needed, and/or the medical risk in this patient being treated as an outpatient. - InPatient: Physician Admission Certification:: After my assessment, the patient will require hospitalization for at least two midnights. This is because of the severity of symptoms shown, intensity of services needed, and/or the medical risk in this patient being treated as an outpatient. - . Bed Request Type: Regular Admitting Physician: Yue Cota Patient Diagnosis: Abdominal pain, Acute pancreatitis
[2018-08-24 19:34] LABS: BASO # 0.1 K/uL (0.0-0.2); BASO % 0.7 % (0.0-2.0); EOS # 0.1 K/uL (0.0-0.7); EOS % 0.4 % (0.0-4.0); LYMPH # 2.2 K/uL (1.0-4.3); LYMPH % 16.4 % (20.0-40.0); MEAN CELL VOLUME 88.9 fL (81.0-99.0); MEAN CORPUSCULAR HEMOGLOBIN 34.1 pg (27.0-31.0); MEAN CORPUSCULAR HGB CONC 38.3 g/dL (33.0-37.0); MEAN PLATELET VOLUME 7.4 fL (7.2-11.7); MONO # 0.4 K/uL (0.0-0.8); MONO % 2.7 % (0.0-10.0); NEUT # 10.6 K/uL (1.8-7.0); NEUT % 79.8 % (50.0-75.0); NRBC % 0.1 % (0.0-2.0); RBC 4.34 Mil/uL (3.80-5.20); RED CELL DISTRIBUTION WIDTH 15.9 % (11.5-14.5)
[2018-08-24 19:44] LABS: WHITE BLOOD COUNT 13.2 K/uL (4.8-10.8)
[2018-08-24 19:47] LABS: ALB/GLOB RATIO 0.8 (1.0-2.1); ALBUMIN 4.1 g/dL (3.5-5.0); ALT/SGPT < 6 U/L (9-52); AST/SGOT 31 U/L (14-36); BLOOD UREA NITROGEN 27 mg/dL (7-17); CALCIUM 9.5 mg/dl (8.6-10.4); GFR NON-AFRICAN AMERICAN 55; LIPASE 1712 U/L (23-300)
[2018-08-24 19:51] LABS: PROTHROMBIN TIME 11.4 SECONDS (9.7-12.2)
[2018-08-24] MEDS ORDERED: Morphine 4 MG/ML VIAL ONE (19:54)
[2018-08-24 20:42] LABS: HEMOGLOBIN 13.2 g/dL (11.0-16.0)
[2018-08-24] MEDS ORDERED: Iohexol 300 100 ML IJ ONE (20:59)
[2018-08-24 22:11] LABS: SQUAMOUS EPITHIAL 1 /hpf (0-5); URINE BILIRUBIN NEGATIVE (NEGATIVE); URINE BLOOD 1+ (NEGATIVE); URINE CLARITY Clear (Clear); URINE COLOR Yellow (YELLOW); URINE GLUCOSE (UA) 3+ mg/dL (Normal); URINE LEUKOCYTE ESTERASE NEG Leu/uL (Negative); URINE PROTEIN 2+ mg/dL (NEGATIVE); URINE UROBILINOGEN NORMAL mg/dL (0.2-1.0)
[2018-08-24] MEDS ORDERED: Pantoprazole 80 MG in Sodium Chloride 0.9% 100 ML IVP SCH (23:00)
[2018-08-25 02:35] VITALS: RESP 20
[2018-08-25] MEDS: HYDROmorphone 1 mg/ml ISec IVP PRN ×3 (04:38→18:10)
[2018-08-25] MEDS: Pantoprazole 80 MG in Sodium Chloride 0.9% 100 ML IVPB SCH ×2 (06:33→17:11)
[2018-08-25] MEDS: Sodium Chloride 0.9% 1,000 ML IV SCH ×3 (06:34→21:21)
[2018-08-25] MEDS: (Novolog) Insulin Aspart, Recombinant 100 u/ml 10 ml vial SC SCH ×4 (08:26→21:14)
[2018-08-25] MEDS: Omega-3-Acid Ethyl Esters 1 GM Cap PO SCH ×2 (09:49→17:13)
[2018-08-25] MEDS: Enoxaparin 40 mg Syringe SC SCH (09:51)
[2018-08-25] MEDS ORDERED: Metoprolol Succinate 100 mg XL Tab PO SCH (10:00)
[2018-08-25] MEDS ORDERED: VALSARTAN PO SCH (10:00)
--- NOTE | 2018-08-25 10:58 | CT ---
Date of service: 08/24/2018 PROCEDURE: CT Abdomen and Pelvis with contrast HISTORY: pancreatitis COMPARISON: 11/21/2017. TECHNIQUE: CT scan of the abdomen and pelvis was performed after administration of intravenous contrast. Oral contrast was not administered. Coronal and sagittal reformatted images were obtained. Contrast dose: 100 mL Omnipaque 300 Radiation dose: Total exam DLP = 617.76 mGy-cm. This CT exam was performed using one or more of the following dose reduction techniques: Automated exposure control, adjustment of the mA and/or kV according to patient size, and/or use of iterative reconstruction technique. FINDINGS: LOWER THORAX: The visualized lungs are clear. LIVER: The liver is enlarged and measures 23 cm in craniocaudad dimension. There is diffuse fatty liver with normal homogeneous enhancement. No gross lesion or ductal dilatation. GALLBLADDER AND BILE DUCTS: Well distended. No calcified gallstones, wall thickening or pericholecystic fluid. PANCREAS: The pancreas has indistinct margins and there are significant peripancreatic inflammatory changes, fat stranding and edema. Homogeneous enhancement in the visualized pancreas. No evidence for ductal dilatation, calcifications or pseudocyst. SPLEEN: Mild splenomegaly. Homogeneous enhancement. No focal lesion ADRENALS: No discrete nodule. KIDNEYS AND URETERS: Normal in size with homogeneous enhancement. No hydronephrosis. No solid mass. VASCULATURE: No aortic aneurysm. There are aortic atherosclerotic calcifications and peripheral mural plaques present. BOWEL: Evaluation of the bowel is limited in the absence of oral contrast. The small bowel loops are normal in caliber. The colon is grossly normal in appearance. No bowel wall thickening or obstruction. APPENDIX: Not visualized. No inflammatory changes in the right lower quadrant. PERITONEUM: No free fluid. No free air. LYMPH NODES: No enlarged lymph nodes. BLADDER: Well distended and normal in appearance. REPRODUCTIVE: The uterus is normal in size. BONES: No acute fracture. Within normal limits for the patient's age. OTHER FINDINGS: There is a small sliding hiatal hernia. IMPRESSION: 1. Acute uncomplicated pancreatitis. 2. Left colonic diverticulosis without CT evidence for acute diverticulitis. 3. Moderate hepatomegaly and fatty liver. Mild splenomegaly. 4. No CT evidence for calcified gallstones.
--- NOTE | 2018-08-25 16:43 | CARD ---
APPROVED REPORT Date of service: 08/24/2018 EKG Measurement Heart [id number] <Conclusion> Normal sinus rhythm Minimal voltage criteria for LVH, may be normal variant Nonspecific T wave abnormality Abnormal ECG
[2018-08-26] MEDS: HYDROmorphone 1 mg/ml ISec IVP PRN ×3 (00:38→22:47)
[2018-08-26] MEDS: Pantoprazole 80 MG in Sodium Chloride 0.9% 100 ML IVPB SCH ×4 (01:45→21:09)
[2018-08-26] MEDS: Sodium Chloride 0.9% 1,000 ML IV SCH ×6 (04:00→22:52)
--- NOTE | 2018-08-26 04:45 | HP ---
HISTORY OF PRESENT ILLNESS: This is a 67-year-old [place] female with history of recurrent pancreatitis secondary to hypertriglyceridemia. The patient presented to the emergency room with upper abdominal pain, nausea and vomiting. The patient was evaluated in the emergency room due to the upper abdominal pain that radiates to the back. The patient was found to have pancreatitis with lipase more than 17,000. The patient was started on IV fluid and admitted for further management. Other review of system is negative. ALLERGIES: POSITIVE FOR PENICILLIN. MEDICATIONS: Reviewed as per MAR and ordered. SOCIAL HISTORY: No history of smoking, EtOH or substance abuse. FAMILY HISTORY: Not contributory. PAST MEDICAL HISTORY: Coronary artery disease status post PCI, hypertension, type 2 diabetes mellitus, hypertriglyceridemia, recurrent pancreatitis. PHYSICAL EXAMINATION: GENERAL: The patient is not in any cardiopulmonary distress. VITAL SIGNS: Blood pressure 134/76, temperature 98.3, respiratory rate 20 and pulse 87. HEENT: Pupils equal, reactive to light. Normal-appearing mucosa of the conjunctivae, oropharynx and nasal membrane mucosa. NECK: Supple. No JVD. No carotid bruit. No lymph node. No thyromegaly. CHEST AND LUNGS: Bilateral symmetrical expansion. Good air exchange. No rales, no rhonchi. CARDIOVASCULAR SYSTEM: PMI not localized. S1, S2. No additional sounds. ABDOMEN: Normoactive bowel sounds. The patient has epigastric tenderness. No organomegaly. No masses. EXTREMITIES: No cyanosis, no clubbing, no edema. NON DESTRUCTIVE TESTER: Alert, awake, oriented x2. No neurological deficit could be appreciated. ASSESSMENT: 1. Acute pancreatitis. 2. Hypertriglyceridemia. 3. Type 2 diabetes mellitus. 4. Hypertension. PLAN: Continue IV fluids and advance diet as tolerated. Resume the patient's home medications. Yue Cota MD
[2018-08-26 07:08] LABS: BASO % 0.1 % (0.0-2.0); EOS # 0.1 K/uL (0.0-0.7); EOS % 0.7 % (0.0-4.0); LYMPH # 1.5 K/uL (1.0-4.3); LYMPH % 15.5 % (20.0-40.0); MEAN CELL VOLUME 90.3 fL (81.0-99.0); MEAN CORPUSCULAR HEMOGLOBIN 30.4 pg (27.0-31.0); MEAN CORPUSCULAR HGB CONC 33.7 g/dL (33.0-37.0); MEAN PLATELET VOLUME 7.4 fL (7.2-11.7); MONO # 0.3 K/uL (0.0-0.8); MONO % 3.2 % (0.0-10.0); NEUT # 7.7 K/uL (1.8-7.0); NEUT % 80.5 % (50.0-75.0); NRBC % 0.1 % (0.0-2.0); RBC 3.56 Mil/uL (3.80-5.20); RED CELL DISTRIBUTION WIDTH 16.2 % (11.5-14.5); WHITE BLOOD COUNT 9.6 K/uL (4.8-10.8)
[2018-08-26 07:16] LABS: HEMOGLOBIN 10.8 g/dL (11.0-16.0)
[2018-08-26 07:57] LABS: ALB/GLOB RATIO 1.1 (1.0-2.1); ALBUMIN 3.5 g/dL (3.5-5.0); ALT/SGPT 8 U/L (9-52); AMYLASE 116 U/L (30-110); AST/SGOT 19 U/L (14-36); BLOOD UREA NITROGEN 23 mg/dL (7-17); CALCIUM 8.2 mg/dl (8.6-10.4); GFR NON-AFRICAN AMERICAN 50; HDL CHOLESTEROL 27 mg/dL (30-70); LDL CHOLESTEROL < 30 mg/dL (0-129); LIPASE 364 U/L (23-300)
[2018-08-26] MEDS: (Novolog) Insulin Aspart, Recombinant 100 u/ml 10 ml vial SC SCH ×4 (08:30→22:00)
[2018-08-26] MEDS ORDERED: Pneumococcal 23-Valent Vaccine IM ONE (10:00)
[2018-08-26] MEDS ORDERED: Influenza Vaccine 60 mcg/0.5 mL SYR (4YR UP) IM ONE (10:00)
[2018-08-26] MEDS: Enoxaparin 40 mg Syringe SC SCH (10:52)
[2018-08-26] MEDS: Omega-3-Acid Ethyl Esters 1 GM Cap PO SCH ×2 (10:52→17:49)
[2018-08-26] MEDS: Metoprolol Succinate 50 mg XL Tab PO SCH (10:52)
[2018-08-27] MEDS: HYDROmorphone 1 mg/ml ISec IVP PRN ×2 (05:54→16:46)
[2018-08-27] MEDS: Sodium Chloride 0.9% 1,000 ML IV SCH ×4 (05:58→21:57)
[2018-08-27] MEDS: Pantoprazole 80 MG in Sodium Chloride 0.9% 100 ML IVPB SCH ×4 (07:59→22:00)
[2018-08-27 08:21] LABS: BASO % 0.1 % (0.0-2.0); EOS # 0.2 K/uL (0.0-0.7); EOS % 2.2 % (0.0-4.0); HEMOGLOBIN 9.1 g/dL (11.0-16.0); LYMPH # 1.6 K/uL (1.0-4.3); LYMPH % 17.9 % (20.0-40.0); MEAN CELL VOLUME 90.2 fL (81.0-99.0); MEAN CORPUSCULAR HEMOGLOBIN 30.1 pg (27.0-31.0); MEAN CORPUSCULAR HGB CONC 33.4 g/dL (33.0-37.0); MEAN PLATELET VOLUME 7.5 fL (7.2-11.7); MONO # 0.2 K/uL (0.0-0.8); MONO % 2.5 % (0.0-10.0); NEUT # 7.1 K/uL (1.8-7.0); NEUT % 77.3 % (50.0-75.0); RBC 3.03 Mil/uL (3.80-5.20); RED CELL DISTRIBUTION WIDTH 16.3 % (11.5-14.5); WHITE BLOOD COUNT 9.2 K/uL (4.8-10.8)
[2018-08-27] MEDS: (Novolog) Insulin Aspart, Recombinant 100 u/ml 10 ml vial SC SCH ×4 (08:22→21:26)
[2018-08-27 08:30] LABS: BLOOD UREA NITROGEN 20 mg/dL (7-17); GFR NON-AFRICAN AMERICAN > 60
[2018-08-27 08:31] LABS: ALBUMIN 3.2 g/dL (3.5-5.0); ALT/SGPT < 6 U/L (9-52); AMYLASE 53 U/L (30-110); AST/SGOT 16 U/L (14-36); CALCIUM 8.5 mg/dl (8.6-10.4); LIPASE 101 U/L (23-300)
[2018-08-27] MEDS: Omega-3-Acid Ethyl Esters 1 GM Cap PO SCH ×2 (10:00→17:31)
[2018-08-27] MEDS: Metoprolol Succinate 50 mg XL Tab PO SCH (10:00)
[2018-08-27] MEDS: Enoxaparin 40 mg Syringe SC SCH (10:00)
[2018-08-28] MEDS: Sodium Chloride 0.9% 1,000 ML IV SCH ×2 (00:40→06:00)
[2018-08-28] MEDS: HYDROmorphone 1 mg/ml ISec IVP PRN ×2 (01:15→11:03)
--- NOTE | 2018-08-28 01:32 | PN ---
DATE: 08/26/2018 SUBJECTIVE: The patient was seen on 08/26/2018. She was not in any cardiopulmonary distress. The patient was still complaining of upper abdominal pain. PHYSICAL EXAMINATION: VITAL SIGNS: Blood pressure was 113/61, temperature 97.7, respiratory rate 20 and pulse 52. HEENT: Pupils equal, reactive to light. Normal-appearing mucosa of the conjunctivae, oropharynx and nasal membrane mucosa. NECK: Supple. No JVD. No carotid bruit. No lymph node. No thyromegaly. CHEST AND LUNGS: Bilateral symmetrical expansion. Good air exchange. No rales, no rhonchi. CARDIOVASCULAR SYSTEM: PMI not localized. S1, S2. No additional sounds. ABDOMEN: Normoactive bowel sounds. No tenderness. No organomegaly. No masses. EXTREMITIES: No cyanosis, no clubbing, no edema. CENTRAL NERVOUS SYSTEM: Alert, awake, oriented x2. No neurological deficit could be appreciated. ASSESSMENT: 1. Acute pancreatitis. 2. Hypertriglyceridemia. 3. Hypertension. 4. Coronary artery disease, status post coronary artery bypass graft. 5. Type 2 diabetes mellitus. PLAN: Continue current IV fluid as well as current medications include omega-3, niacin, and fenofibrate. Pain management as needed. Yue Cota MD
[2018-08-28] MEDS: Pantoprazole 80 MG in Sodium Chloride 0.9% 100 ML IVPB SCH ×3 (03:45→12:48)
[2018-08-28 07:31] LABS: BASO % 0.4 % (0.0-2.0); EOS # 0.2 K/uL (0.0-0.7); EOS % 3.3 % (0.0-4.0); LYMPH # 1.6 K/uL (1.0-4.3); LYMPH % 26.4 % (20.0-40.0); MEAN CELL VOLUME 90.3 fL (81.0-99.0); MEAN CORPUSCULAR HEMOGLOBIN 29.6 pg (27.0-31.0); MEAN CORPUSCULAR HGB CONC 32.8 g/dL (33.0-37.0); MEAN PLATELET VOLUME 7.3 fL (7.2-11.7); MONO # 0.3 K/uL (0.0-0.8); MONO % 4.7 % (0.0-10.0); NEUT # 3.9 K/uL (1.8-7.0); NEUT % 65.2 % (50.0-75.0); NRBC % 0.1 % (0.0-2.0); RBC 3.03 Mil/uL (3.80-5.20); RED CELL DISTRIBUTION WIDTH 16.1 % (11.5-14.5)
[2018-08-28 07:44] LABS: ALBUMIN 2.9 g/dL (3.5-5.0); ALT/SGPT 11 U/L (9-52); AMYLASE 40 U/L (30-110); AST/SGOT 15 U/L (14-36); BLOOD UREA NITROGEN 17 mg/dL (7-17); CALCIUM 8.4 mg/dl (8.6-10.4); GFR NON-AFRICAN AMERICAN > 60; LIPASE 71 U/L (23-300)
[2018-08-28] MEDS: (Novolog) Insulin Aspart, Recombinant 100 u/ml 10 ml vial SC SCH ×4 (08:16→21:25)
[2018-08-28] MEDS: Omega-3-Acid Ethyl Esters 1 GM Cap PO SCH ×2 (09:32→17:15)
[2018-08-28] MEDS: Metoprolol Succinate 50 mg XL Tab PO SCH (09:32)
[2018-08-28] MEDS: Enoxaparin 40 mg Syringe SC SCH (09:32)
[2018-08-28] MEDS: HYDROmorphone 0.5 mg/0.5 ml ISec IVP PRN (21:55)
--- NOTE | 2018-08-29 02:39 | PN ---
DATE: 08/28/2018 SUBJECTIVE: The patient is seen today, 08/28/2018. She is complaining of shortness of breath. PHYSICAL EXAMINATION: VITAL SIGNS: Blood pressure is 140/79, temperature 97.9, respiratory rate 20, and pulse 68. HEENT: Pupils equal, reactive to light. Normal-appearing mucosa of the conjunctivae, oropharynx and nasal membrane mucosa. NECK: Supple. No JVD. No carotid bruit. No lymph node. No thyromegaly. CHEST AND LUNGS: Bilateral symmetrical expansion. Few basilar rales. CARDIOVASCULAR SYSTEM: PMI not localized. S1, S2. No additional sounds. ABDOMEN: Normoactive bowel sounds. No tenderness. No organomegaly. No masses. EXTREMITIES: No cyanosis, no clubbing, no edema. CENTRAL NERVOUS SYSTEM: Alert, awake, oriented x2. No neurological deficit could be appreciated. ASSESSMENT: 1. Acute pancreatitis. 2. Hypertriglyceridemia. 3. Hypertension. 4. Coronary artery disease status post percutaneous coronary intervention. 5. Type 2 diabetes mellitus. PLAN: Continue Accu-Cheks with insulin coverage. We will discontinue the fluids, as the patient started to have volume overload with shortness of breath and give the patient Lasix. Advance diet as tolerated. Yue Cota MD
[2018-08-29] MEDS: (Novolog) Insulin Aspart, Recombinant 100 u/ml 10 ml vial SC SCH ×4 (08:15→21:38)
[2018-08-29] MEDS: HYDROmorphone 0.5 mg/0.5 ml ISec IVP PRN ×2 (08:15→21:30)
[2018-08-29] MEDS: Enoxaparin 40 mg Syringe SC SCH (09:32)
[2018-08-29] MEDS: Metoprolol Succinate 50 mg XL Tab PO SCH (09:33)
[2018-08-29] MEDS: Omega-3-Acid Ethyl Esters 1 GM Cap PO SCH ×2 (09:33→17:34)
[2018-08-29] MEDS ORDERED: Pantoprazole 40 mg EC Tab PO SCH (10:00)
[2018-08-29] MEDS: Sodium Chloride 0.9% 1,000 ML IV SCH ×2 (13:39→21:42)
[2018-08-30] MEDS: Sodium Chloride 0.9% 1,000 ML IV SCH ×5 (00:41→21:32)
--- NOTE | 2018-08-30 01:52 | PN ---
DATE: 08/29/2018 DAILY PROGRESS NOTE SUBJECTIVE: The patient is seen today, 08/29/2018. She is not in any cardiopulmonary distress, but is having upper abdominal pain after she started to eat. OBJECTIVE: VITAL SIGNS: Blood pressure 150/84, temperature 98.2, respiratory rate 20, and pulse 73. HEENT: Pupils equal and reactive to light. Normal-appearing mucosa of the conjunctivae, oropharynx, and nasal membrane mucosa. NECK: Supple. No JVD. No carotid bruit. No lymph node. No thyromegaly. CHEST AND LUNGS: Bilateral symmetrical expansion. Good air exchange. No rales, no rhonchi. CARDIOVASCULAR SYSTEM: PMI not localized. S1, S2. No additional sounds. ABDOMEN: Normoactive bowel sounds. The patient has epigastric tenderness with no rebound tenderness or rigidity. No organomegaly. No masses. EXTREMITIES: No cyanosis, no clubbing, no edema. CENTRAL NERVOUS SYSTEM: Alert, awake, oriented x2. No neurological deficit could be appreciated. ASSESSMENT: 1. Acute pancreatitis. 2. Hypertriglyceridemia. 3. Type 2 diabetes mellitus. 4. Coronary artery disease, status post percutaneous coronary intervention. PLAN: We will change diet again to fluids to liquid diet, and start the patient on IV fluid. Continue current Accu-Cheks with insulin coverage. Yue Cota MD
[2018-08-30 07:32] LABS: ALB/GLOB RATIO 1.1 (1.0-2.1); ALBUMIN 3.7 g/dL (3.5-5.0); ALT/SGPT 6 U/L (9-52); AST/SGOT 18 U/L (14-36); BLOOD UREA NITROGEN 17 mg/dL (7-17); CALCIUM 9.2 mg/dl (8.6-10.4); GFR NON-AFRICAN AMERICAN > 60; LIPASE 78 U/L (23-300)
[2018-08-30] MEDS: (Novolog) Insulin Aspart, Recombinant 100 u/ml 10 ml vial SC SCH ×4 (08:14→21:31)
[2018-08-30] MEDS: HYDROmorphone 0.5 mg/0.5 ml ISec IVP PRN ×2 (08:22→19:15)
[2018-08-30] MEDS: Omega-3-Acid Ethyl Esters 1 GM Cap PO SCH ×2 (10:15→17:35)
[2018-08-30] MEDS: Metoprolol Succinate 50 mg XL Tab PO SCH (10:16)
[2018-08-30] MEDS: Enoxaparin 40 mg Syringe SC SCH (10:16)
[2018-08-31] MEDS: HYDROmorphone 0.5 mg/0.5 ml ISec IVP PRN ×2 (02:32→13:02)
--- NOTE | 2018-08-31 08:01 | PN ---
DATE: 08/30/2018 The patient was seen on 08/30/2018. SUBJECTIVE: She was not in any cardiopulmonary distress, and abdominal pain was improving . She was on IV fluids. PHYSICAL EXAMINATION: VITAL SIGNS: Blood pressure 139/80, temperature 98.1, respiratory rate 20, and pulse 70. HEENT: Pupils equal, reactive to light. Normal-appearing mucosa of the conjunctivae, oropharynx, and nasal membrane mucosa. NECK: Supple. No JVD. No carotid bruit. No lymph node. No thyromegaly. CHEST AND LUNGS: Bilateral symmetrical expansion. Good air exchange. No rales. No rhonchi. CARDIOVASCULAR SYSTEM: PMI not localized. S1, S2. No additional sounds. ABDOMEN: Normoactive bowel sounds. No tenderness. No organomegaly. No masses. EXTREMITIES: No cyanosis, no clubbing, no edema. CENTRAL NERVOUS SYSTEM: Alert, awake, oriented x2. No neurological deficit could be appreciated. ASSESSMENT: 1. Acute pancreatitis. 2. Hypertriglyceridemia. 3. Type 2 diabetes mellitus. 4. Coronary artery disease, status post coronary artery bypass graft. PLAN: We will advance diet and continue IV fluid for now if the patient tolerates, will be discharged the following day. Yue Cota MD
[2018-08-31] MEDS: (Novolog) Insulin Aspart, Recombinant 100 u/ml 10 ml vial SC SCH ×2 (08:27→11:45)
[2018-08-31 08:39] VITALS: BP 165/90; PULSE 82; TEMP 98.5; O2SAT 97
[2018-08-31] MEDS: Metoprolol Succinate 50 mg XL Tab PO SCH (10:04)
[2018-08-31] MEDS: Omega-3-Acid Ethyl Esters 1 GM Cap PO SCH (10:06)
[2018-08-31] MEDS: Enoxaparin 40 mg Syringe SC SCH (10:07)
--- NOTE | 2018-08-31 13:54 | CP.PCM.PN ---
Subjective - Date & Time of Evaluation Date of Evaluation: 08/31/18 Time of Evaluation: 13:53 - Subjective Subjective: PATIENT SEEN AND EXAMINED AT THE BEDSIDE Objective - Vital Signs/Intake and Output Vital Signs (last 24 hours): Temp Pulse Resp BP Pulse Ox 98.5 F 82 20 165/90 H 97 08/31/18 08:00 08/31/18 08:00 08/31/18 08:00 08/31/18 10:40 08/31/18 08:00 Intake and Output: 08/31/18 08/31/18 06:59 18:59 Intake Total 640 Balance 640 - Medications Medications: Current Medications Aspirin (Aspirin Chewable) 81 mg PO DAILY [facility] Last Admin: 08/31/18 10:03 Dose: 81 mg Enoxaparin Sodium (Lovenox) 40 mg SC DAILY [facility] Last Admin: 08/31/18 10:07 Dose: 40 mg Famotidine (Pepcid) 20 mg PO DAILY [facility] Last Admin: 08/31/18 10:13 Dose: 20 mg Fenofibrate (Tricor) 145 mg PO HS [facility] Last Admin: 08/30/18 21:31 Dose: 145 mg Furosemide (Lasix) 40 mg IVP DAILY [facility] Last Admin: 08/31/18 10:40 Dose: 40 mg Hydromorphone HCl (Dilaudid) 0.5 mg IVP Q4H PRN PRN Reason: Pain, severe (8-10) Last Admin: 08/31/18 13:02 Dose: 0.5 mg Sodium Chloride (Sodium Chloride 0.9%) 1,000 mls @ 80 mls/hr IV .[id number] [facility] Last Admin: 08/30/18 21:32 Dose: 80 mls/hr Insulin Aspart (Novolog) 0 unit SC ACHS [facility]; Protocol Last Admin: 08/31/18 11:45 Dose: 6 u Losartan Potassium (Cozaar) 25 mg PO DAILY [facility] Last Admin: 08/31/18 10:06 Dose: 25 mg Metoprolol Succinate (Toprol Xl) 50 mg PO DAILY [facility] Last Admin: 08/31/18 10:04 Dose: 50 mg Dzcpm-3-Jged Ethyl Esters (Lovaza) 2 gm PO BID [facility] Last Admin: 08/31/18 10:06 Dose: 2 gm Ondansetron HCl (Zofran Inj) 4 mg IVP Q8 PRN PRN Reason: Nausea/Vomiting Last Admin: 08/26/18 00:38 Dose: 4 mg - Labs Labs: 08/28/18 07:10 08/30/18 06:46 PT 11.4 SECONDS (9.7-12.2) 08/24/18 19:30 INR 1.0 08/24/18 19:30 APTT 31 SECONDS (21-34) 08/24/18 19:30 Assessment and Plan - Assessment and Plan (Free Text) Assessment: follow up with dr sosa in his office -----call for appointment continue home medication new prescription given valsartan 25 mg po daily niacin 500 mg po daily percocet 1 tab q8h as needed for pain activity as tolerated call dr sosa or go to the emergency room if symptom return or worsening
== END 2018-08-31 15:33 | disposition home or self-care (01) | DRG 440 ==
LOC: C.ER 17:50 → C.3T 22:52
PROVIDERS: ADMIT Internal Medicine; ATTEND Internal Medicine
DX: K85.90 Acute pancreatitis without necrosis or infection, unspecified (principal); E78.1 Pure hyperglyceridemia; K86.1 Other chronic pancreatitis; I11.0 Hypertensive heart disease with heart failure; E11.9 Type 2 diabetes mellitus without complications; E03.9 Hypothyroidism, unspecified; I25.10 Atherosclerotic heart disease of native coronary artery without angina pectoris; I50.9 Heart failure, unspecified; E05.00 Thyrotoxicosis with diffuse goiter without thyrotoxic crisis or storm; E78.00 Pure hypercholesterolemia, unspecified; E78.5 Hyperlipidemia, unspecified; F41.9 Anxiety disorder, unspecified; M19.90 Unspecified osteoarthritis, unspecified site; Z95.5 Presence of coronary angioplasty implant and graft; Z95.1 Presence of aortocoronary bypass graft; Z79.4 Long term (current) use of insulin